=== PATIENT | male | born 1955 | race Caucasian/White ===

== ENCOUNTER → 2019-07-02 16:38 | Outpatient (CLI) | payer MEDICARE, OTHER, SELFPAY ==
[2016-11-12 12:32] VITALS: BMI 36.4
--- NOTE | 2019-07-02 16:44 | CT_ITS ---
HISTORY: PT STATED SMOKING HX OF 59 YEARS. VARYING 2-3 CIG PER DAY TO 3 PPD. TECHNIQUE: Helically acquired images of the chest were obtained without IV contrast utilizing low-dose screening technique with axial 1.25 mm lung window reconstructed images and coronal and sagittal 2.5 mm lung window reconstructed images reviewed. CTDI 3.40 mGy. DLP 112.31 mGy-cm. Number of images including paperwork: [id number]. COMPARISON: 08/02/2017 FINDINGS: VASCULATURE: Unremarkable as imaged. HEART/PERICARDIUM: Normal heart size. Coronary calcification.. MEDIASTINUM: Unremarkable. ADENOPATHY: No pathologic appearing adenopathy. THYROID: Unremarkable visualized portions. LUNG PARENCHYMA: No consolidation or mass. No suspicious lung nodule detected. Peribronchial thickening. PLEURAL SPACES: Unremarkable. UPPER ABDOMEN: Unremarkable. OSSEOUS AND SOFT TISSUE STRUCTURES: No acute skeletal findings. Degenerative changes. DEVICES: None. CT/Low Dose CT Lung Screening IMPRESSION: 1. No suspicious lung nodule detected. Lung-RADS 1. Recommend continued annual screening. 2. Peribronchial thickening as can be seen with bronchitis or airways disease. Individualized dose optimization techniques were used for this CT. at [id number] Reported and signed by: Arielle Hurst MD Electronically Signed: Arielle Hurst MD at 23:48 EST Tel , Service support ,
== END ==
PROVIDERS: Family Provider Family Medicine; PCP Family Medicine; Referring Provider Family Medicine; Visit Provider Family Medicine
DX: Z87.891 Personal history of nicotine dependence (principal)
CPT/HCPCS: G0297

== ENCOUNTER → 2019-07-07 08:27 | Outpatient (CLI) | payer MEDICARE, OTHER, SELFPAY ==
[2016-11-12 12:32] VITALS: BMI 36.4
--- NOTE | 2019-07-07 08:32 | US_ITS ---
PROCEDURES: ULTRASOUND AORTA REASON FOR EXAM: Male, 64 years old. Abdominal aortic aneurysm screening. TECHNIQUE: Ultrasound evaluation of the aorta was performed with real-time and static thomas-scale imaging. COMPARISON: None. FINDINGS: There is atherosclerotic plaque formation of the abdominal aorta. Aorta measures: Proximal 2.3 cm. Middle 2.0 cm. Distal 2.6 cm. Aorta measure transversely: Proximal 2.6 cm. Middle 2.6 cm. Distal 2.7 cm. Right iliac artery measures: 0.9 cm. Right iliac artery measure transversely: 1.0 cm. Left iliac artery measures: 0.9 cm. Left iliac artery measure transversely: 1.0 cm. There is no demonstrated aneurysm.. US/Aorta IMPRESSION: Atherosclerosis with no associated abdominal aortic aneurysm. Electronically Signed: Amber Hoskins MD at 16:22 EST Tel , Service support ,
[2019-07-07 10:22] LABS: Hematocrit 44.3 % (40-54); Hemoglobin 14.8 g/dL (13.0-16.5); Mean Corp Hgb Conc 33.4 g/dL (32-36); Mean Corpuscular Hgb 31.6 pg (27.0-32.0); Mean Corpuscular Volume 94.7 fL (80-94); Mean Platelet Vol. 10.8 fl (6.2-12.0); Platelet Count 276 K/mm3 (150-450); RBC Distribution Width CV 11.9 % (11.6-14.6); RBC Distribution Width SD 41.5 fl (35.1-43.9); Red Blood Count 4.68 M/mm3 (4.6-6.2); White Blood Count 6.7 K/mm3 (4.4-11.0)
[2019-07-07 10:54] LABS: ALB/GLOB Ratio 1.2 RATIO (0.9-2.4); AST(SGOT) 16 U/L (15-37); Alanine Aminotransfer ALT/SGPT 35 U/L (16-61); Albumin, Serum 3.8 g/dL (3.2-5.0); Alkaline Phosphatase 68 U/L (45-117); Anion Gap 6 (5-15); BUN 27 mg/dL (7-18); BUN/Creat Ratio 24.5 RATIO (10-20); Calcium,Total 8.8 mg/dL (8.5-10.1); Chloride 106 mmol/L (98-107); Cholesterol 190 mg/dL (200); EST Glomerular Filtration Rate 71 mL/min (>60); Est Glom Filt Rate - Afr Amer 86 mL/min (>60); Globulin 3.2 g/dL (2.2-4.2); Glucose 101 mg/dL (74-106); High Density Lipoprotein 36 mg/dL; PSA,Total - Annual Screen 2.21 ng/mL (0.00-4.00); Potassium 4.3 mmol/L (3.5-5.1); Sodium Level 140 mmol/L (136-145); Triglycerides 95 mg/dL; Very Low Density Lipoprotein 19 mg/dL (5-40)
== END ==
PROVIDERS: Family Provider Family Medicine; PCP Family Medicine; Referring Provider Family Medicine; Visit Provider Family Medicine
DX: Z13.6 Encounter for screening for cardiovascular disorders (principal); I10 Essential (primary) hypertension; N40.0 Benign prostatic hyperplasia without lower urinary tract symptoms
CPT/HCPCS: 36415; 76775; 80053; 80061; 84153; 85027; G0103

== ENCOUNTER → 2020-10-05 16:15 | Outpatient (CLI) | payer MEDICARE, OTHER, SELFPAY ==
[2016-11-12 12:32] VITALS: BMI 36.4
--- NOTE | 2020-10-05 16:18 | RAD_ITS ---
STUDY: X-RAY - LEFT SHOULDER REASON FOR EXAM: Male, 65 years old. neck pain and bilateral shoulder pain TECHNIQUE: 4 view(s) of the shoulder. COMPARISON: None. FINDINGS: There is severe degenerative arthrosis of the glenohumeral articulation. Prominent subchondral cysts of the glenoid. Inferior osteophyte of the articular surface of the humerus. There is hypertrophic osteoarthrosis of the acromioclavicular joint with inferior osseous spur formation. Normal acromion. Normal humeral head and visualized proximal humerus. The soft tissue structures are unremarkable. There is no demonstrated fracture. Normal visualized pulmonary apex. RAD/Shoulder min 2 Views IMPRESSION: No acute fracture or dislocation. Prominent degenerative changes. Electronically Signed: Luis F Ying MD at 22:55 EST , Service support ,
--- NOTE | 2020-10-05 16:18 | RAD_ITS ---
STUDY: X-RAY - RIGHT SHOULDER REASON FOR EXAM: Male, 65 years old. neck pain and bilateral shoulder pain TECHNIQUE: 4 view(s) of the shoulder. COMPARISON: None. FINDINGS: There is mild degenerative arthrosis of the glenohumeral articulation. There is hypertrophic osteoarthrosis of the acromioclavicular joint with inferior osseous spur formation. Normal acromion. Normal humeral head and visualized proximal humerus. The soft tissue structures are unremarkable. There is no demonstrated fracture. Normal visualized pulmonary apex. RAD/Shoulder min 2 Views IMPRESSION: Degenerative changes. No acute abnormalities. Electronically Signed: Luis F Ying MD at 22:56 EST , Service support ,
--- NOTE | 2020-10-05 16:20 | RAD_ITS ---
STUDY: X-RAY - CERVICAL SPINE REASON FOR EXAM: Male, 65 years old. neck pain and bilateral shoulder pain TECHNIQUE: 5 view(s) of the cervical spine were obtained. COMPARISON: None FINDINGS: Normal anterior atlantoaxial articulation. Normal odontoid process. Normal lordosis and alignment. There is fusion between C6 and C7. There is multilevel spondylosis. There is moderate narrowing of the disc C5-C6. Neural foraminal narrowing is seen bilaterally C5-C6. The soft tissue structures are unremarkable. There is no demonstrated fracture of the cervical spine. RAD/Cerv Spine 4 or 5 Views IMPRESSION: No acute fracture or dislocation. Multilevel degenerative changes. Cervical body fusion at C6 and C7. Electronically Signed: Luis F Ying MD at 17:11 EST , Service support ,
== END ==
PROVIDERS: PCP Family Medicine; Referring Provider Family Medicine; Visit Provider Family Medicine
DX: M54.2 Cervicalgia (principal); M25.512 Pain in left shoulder; M25.511 Pain in right shoulder
CPT/HCPCS: 72050; 73030

== ENCOUNTER → 2020-11-12 08:11 | Outpatient (CLI) | payer MEDICARE, OTHER, SELFPAY ==
[2016-11-12 12:32] VITALS: BMI 36.4
[2020-11-12 10:51] LABS: ALB/GLOB Ratio 1.1 RATIO (0.9-2.4); AST(SGOT) 16 U/L (15-37); Alanine Aminotransfer ALT/SGPT 37 U/L (16-61); Albumin, Serum 3.6 g/dL (3.2-5.0); Alkaline Phosphatase 74 U/L (45-117); Anion Gap 6 (5-15); BUN 22 mg/dL (7-18); BUN/Creat Ratio 21.2 RATIO (10-20); Calcium,Total 8.9 mg/dL (8.5-10.1); Chloride 104 mmol/L (98-107); Cholesterol 189 mg/dL (200); Creatinine, Serum 1.04 mg/dL (0.70-1.30); EST Glomerular Filtration Rate 76 mL/min (>60); Est Glom Filt Rate - Afr Amer 92 mL/min (>60); Globulin 3.3 g/dL (2.2-4.2); Glucose 108 mg/dL (74-106); High Density Lipoprotein 46 mg/dL; PSA,Total - Annual Screen 0.79 ng/mL (0.00-4.00); Potassium 4.3 mmol/L (3.5-5.1); Protein, Total 6.9 g/dL (6.4-8.2); Sodium Level 139 mmol/L (136-145); Triglycerides 68 mg/dL; Very Low Density Lipoprotein 14 mg/dL (5-40)
== END ==
PROVIDERS: PCP Family Medicine; Referring Provider Family Medicine; Visit Provider Family Medicine
DX: I10 Essential (primary) hypertension (principal); N40.0 Benign prostatic hyperplasia without lower urinary tract symptoms; Z12.5 Encounter for screening for malignant neoplasm of prostate
CPT/HCPCS: 36415; 80053; 80061; 84153; G0103

== ENCOUNTER → 2022-06-19 | Outpatient (CLI) | payer MEDICARE, OTHER, SELFPAY ==
--- NOTE | 2022-06-19 15:26 | ECHOCS_ITS ---
Reason For Study: Arrhythmia Procedure This was a 2D Doppler, Color Flow transthoracic echocardiogram. The study was technically difficult. Contrast injection was performed. Exam performed in department. Left Ventricle Normal LV size. Left ventricular systolic function is normal. The estimated ejection fraction is 65 %. Stage 1 diastolic dysfunction. No regional wall motion abnormalities noted. Right Ventricle Normal RV size. Normal systolic function. Atria Normal left atrium. Normal right atrium. Mitral Valve Normal mitral valve. Tricuspid Valve The tricuspid valve is not well visualized. Aortic Valve Trisinus/trileaflet aortic valve. Mild diffuse aortic valve thickening. Pulmonic Valve The pulmonic valve is not well visualized. Great Vessels Normal aortic root. Pericardium/Pleural No pericardial effusion. Medication 20 gauge I.V. with prn adaptor inserted into right arm. Diluted definity 3ml given slow IV push to enhance endocardial definition. MMode/2D Measurements & Calculations LVIDd: 5.3 cm IVSd: 1.1 cm LA dimension: 3.2 cm LVIDs: 4.1 cm LVPWd: 1.3 cm FS: 22.9 % LAV(MOD-bp): 40.1 ml LA A4 area: 16.2 cm2 RA A4 area: 14.9 cm2 LAV(MOD-bp) Indexed: 18.4 ml/m2 LAV(MOD-sp2): 34.7 ml LAV(MOD-sp4): 43.2 ml Time Measurements MV dec time: 0.30 sec Doppler Measurements & Calculations MV E max riri: 71.5 cm/sec Ao V2 max: 137.6 cm/sec LV V1 max: 96.5 cm/sec MV A max riri: 108.1 cm/sec Ao max P.6 mmHg LV V1 max P.8 mmHg MV E/A: 0.66 PA V2 max: 80.9 cm/sec ECHO/Echo Complete W/ Contrast Interpretation Summary Normal LV size. Left ventricular systolic function is normal. The estimated ejection fraction is 65 %. Stage 1 diastolic dysfunction. Contrast injection was performed. Ordering Physician: Radames Reese Performed By: Martinez Massey RCS
== END | disposition home or self-care (01) ==
PROVIDERS: PCP Family Medicine; Visit Provider Family Medicine
DX: I49.3 Ventricular premature depolarization (principal)
CPT/HCPCS: 93306; Q9957; A4216; C8929

== ENCOUNTER → 2022-12-16 | Outpatient (CLI) | payer MEDICARE, OTHER, SELFPAY ==
[2022-12-16 08:00] LABS: Absolute Lymphocyte Count 1.68 X10^3/uL (0.83-4.51); Absolute Neutrophil Count 3.7 X10^3/uL (2.0-7.7); Basophil# 0.03 X10^3/uL; Basophil% 0.5 % (0-1); Eosinophil# 0.13 X10^3/uL; Eosinophils% 2.2 % (0-5); Hematocrit 44.5 % (40-54); Lymphocyte # 1.68 X10^3/ul (0.83-4.51); Mean Corp Hgb Conc 33.7 g/dL (32-36); Mean Corpuscular Hgb 31.2 pg (27.0-32.0); Mean Corpuscular Volume 92.5 fL (80-94); Mean Platelet Vol. 10.9 fl (6.2-12.0); Monocyte# 0.51 X10^3/uL; Monocyte% 8.5 % (0-10); NRBC Flagged by Analyzer 0 % (0-5); Neutrophil # 3.65 X10^3/uL (2.7-7.7); Neutrophil % 60.6 % (47-70); Platelet Count 236 K/mm3 (150-450); RBC Distribution Width CV 12.5 % (11.6-14.6); RBC Distribution Width SD 42.8 fl (35.1-43.9); Red Blood Count 4.81 M/mm3 (4.6-6.2)
[2022-12-16 08:35] LABS: ALB/GLOB Ratio 1.2 RATIO (0.9-2.4); AST(SGOT) 17 U/L (15-37); Alanine Aminotransfer ALT/SGPT 36 U/L (16-61); Albumin, Serum 3.7 g/dL (3.2-5.0); Alkaline Phosphatase 72 U/L (45-117); Anion Gap 4 (5-15); BUN 19 mg/dL (7-18); BUN/Creat Ratio 17.4 RATIO (10-20); Calcium,Total 9.1 mg/dL (8.5-10.1); Chloride 108 mmol/L (98-107); Cholesterol 175 mg/dL (200); Creatinine, Serum 1.09 mg/dL (0.70-1.30); EST Glomerular Filtration Rate 71 mL/min (>60); Est Glom Filt Rate - Afr Amer 86 mL/min (>60); Globulin 3.2 g/dL (2.2-4.2); Glucose 113 mg/dL (74-106); High Density Lipoprotein 37 mg/dL; PSA,Total - Annual Screen 1.55 ng/mL (0.00-4.00); Protein, Total 6.9 g/dL (6.4-8.2); Sodium Level 140 mmol/L (136-145); Triglycerides 72 mg/dL; Very Low Density Lipoprotein 14 mg/dL (5-40)
== END | disposition home or self-care (01) ==
PROVIDERS: PCP Family Medicine; Referring Provider Family Medicine; Visit Provider Family Medicine
DX: E78.5 Hyperlipidemia, unspecified (principal); N40.0 Benign prostatic hyperplasia without lower urinary tract symptoms; Z12.5 Encounter for screening for malignant neoplasm of prostate
CPT/HCPCS: 36415; 80053; 80061; 84153; 85025; G0103

== ENCOUNTER → 2023-08-07 | Outpatient (CLI) | payer MEDICARE, OTHER, SELFPAY ==
--- NOTE | 2023-08-07 08:22 | CT_ITS ---
EXAM: CT CHEST, LUNG CANCER SCREENING WITHOUT INTRAVENOUS CONTRAST CLINICAL INDICATION: CURRENT SMOKER TECHNIQUE: Helically acquired images were obtained of the chest without intravenous contrast using low dose (LDCT) lung cancer screening protocol. This CT exam was performed using one or more of the following dose reduction techniques: automated exposure control, adjustment of the mA and/or kV according to patient size, and/or use of iterative reconstruction technique. COMPARISON: CT Lung Cancer Screening dated 07/02/2019 FINDINGS: LUNGS AND PLEURAL SPACES: Normal. No mass. No consolidation or edema. No pleural effusion or thickening. No pneumothorax. HEART: Heart is normal size. Prominent coronary artery calcification. No pericardial effusion. MEDIASTINUM: Normal. No mediastinal or hilar adenopathy. Esophagus is unremarkable. No hiatal hernia. THYROID: Normal. No thyroid nodules or calcification. BONES/JOINTS: No suspicious lytic or blastic abnormality. VASCULATURE: No aortic aneurysm. LYMPH NODES: Normal. No enlarged lymph nodes. CT/Low Dose CT Lung Screening IMPRESSION: No evidence of lung mass or nodule. Lung-RADS score: 1 - Negative. Recommend continued annual screening with a low-dose CT (LDCT) in 12 months. Electronically Signed: Eb Vilchis MD at 10:54 EST ,
== END | disposition home or self-care (01) ==
LOC: CT 07:47
PROVIDERS: PCP Family Medicine; Referring Provider Family Medicine; Visit Provider Family Medicine
DX: F17.210 Nicotine dependence, cigarettes, uncomplicated (principal)
CPT/HCPCS: 71271

== ENCOUNTER → 2024-01-09 | Outpatient (CLI) | payer MEDICARE, OTHER, SELFPAY ==
--- NOTE | 2024-01-09 10:57 | RAD_ITS ---
INDICATION: COUGH EXAMINATION/TECHNIQUE: X-RAY - XR Chest 2 Views COMPARISON: 09/26/2016. FINDINGS: LINES/DEVICES: None. LUNGS: No consolidation, edema or effusion. No pneumothorax. MEDIASTINUM AND CARDIOVASCULAR STRUCTURES: Cardiac silhouette not enlarged. BONES AND SOFT TISSUES: Unremarkable. RAD/Chest PA and Lateral IMPRESSION: No radiographic evidence of acute cardiopulmonary disease. Electronically Signed: Flip Holbrook MD at 18:51 EDT ,
== END | disposition home or self-care (01) ==
PROVIDERS: PCP Family Medicine; Referring Provider Family Medicine; Visit Provider Family Medicine
DX: R05.9 Cough, unspecified (principal)
CPT/HCPCS: 71046

== ENCOUNTER → 2024-06-14 | Outpatient (CLI) | payer MEDICARE, OTHER, SELFPAY ==
[2024-06-14 08:28] LABS: Hematocrit 41.9 % (40-54); Hemoglobin 14.2 g/dL (13.0-16.5); Mean Corp Hgb Conc 33.9 g/dL (32-36); Mean Corpuscular Hgb 31.3 pg (27.0-32.0); Mean Corpuscular Volume 92.3 fL (80-94); Platelet Count 255 K/mm3 (150-450); RBC Distribution Width CV 12.6 % (11.6-14.6); RBC Distribution Width SD 42.5 fl (35.1-43.9); Red Blood Count 4.54 M/mm3 (4.6-6.2)
[2024-06-14 09:09] LABS: ALB/GLOB Ratio 1.1 RATIO (0.9-2.4); AST(SGOT) 13 U/L (15-37); Alanine Aminotransfer ALT/SGPT 28 U/L (16-61); Albumin, Serum 3.6 g/dL (3.2-5.0); Alkaline Phosphatase 75 U/L (45-117); Anion Gap 4 (5-15); BUN 18 mg/dL (7-18); BUN/Creat Ratio 19.3 RATIO (10-20); Calcium,Total 9.3 mg/dL (8.5-10.1); Chloride 107 mmol/L (98-107); Cholesterol 162 mg/dL (200); Creatinine, Serum 0.93 mg/dL (0.70-1.30); EST Glomerular Filtration Rate 85 mL/min (>60); Est Glom Filt Rate - Afr Amer 103 mL/min (>60); Globulin 3.3 g/dL (2.2-4.2); Glucose 127 mg/dL (74-106); High Density Lipoprotein 41 mg/dL; PSA,Total - Annual Screen 0.96 ng/mL (0.00-4.00); Potassium 4.5 mmol/L (3.5-5.1); Protein, Total 6.9 g/dL (6.4-8.2); Sodium Level 140 mmol/L (136-145); Triglycerides 82 mg/dL; Very Low Density Lipoprotein 16 mg/dL (5-40)
== END | disposition home or self-care (01) ==
LOC: LAB 07:45
PROVIDERS: PCP Family Medicine; Referring Provider Family Medicine; Visit Provider Family Medicine
DX: E11.9 Type 2 diabetes mellitus without complications (principal); J44.9 Chronic obstructive pulmonary disease, unspecified; Z12.5 Encounter for screening for malignant neoplasm of prostate; E78.5 Hyperlipidemia, unspecified
CPT/HCPCS: 36415; 80053; 80061; 84153; 84403; 84443; 85027; G0103

== ENCOUNTER → 2024-08-15 | Outpatient (CLI) | payer MEDICARE, OTHER, SELFPAY ==
--- NOTE | 2024-08-15 07:25 | CT_ITS ---
STUDY: LOW DOSE CT LUNG CANCER SCREENING REASON FOR EXAM: Male, 69 years old. screening -- 3ppd x 55 years copd RADIATION DOSAGE (If Supplied By Facility): CTDIvol = ( 4.02 ) mGy, DLP = ( 139.44 ) mGycm TECHNIQUE: No contrast was administered. Low dose technique was utilized (average mAS-38 and kVp 120). 1.25 mm axial source images with a slice interval of 1.25-mm were reconstructed in lung windows. 2.5 mm axial source images with a slice interval of 2.5-mm were reconstructed in lung windows. 5.0 mm axial source images with a slice interval of 5.0-mm were reconstructed in soft tissue windows. COMPARISON: 08/07/2023 FINDINGS: Lung windows show the lungs to be normally expanded. There is no organized infiltrate, effusion, or suspicious noncalcified mass or nodule. Limited soft tissue windows show normal-appearing thyroid gland. No suspicious adenopathy. There are calcified coronary vessels. No pericardial effusion. Bony structures show degenerative change. Limited cuts through the upper abdomen do not show a suspicious abnormality. No interval change CT/Low Dose CT Lung Screening IMPRESSION: Lung-RADS category 1 - Continue annual screening with LDCT in 12 months. IMPORTANT NOTES FOR USE: ACR Lung-RADS Version 1.1 Assessment Categories Release Date: 2018 Category: Coded 0-4 bases on nodule(s) with highest degree of suspicion. Negative screen is defined as categories 1 and 2; a positive screen is defined as categories 3 and 4. Category 3 and 4A nodules that are unchanged on interval CT should be coded as category 2, and individuals returned to screening in 12 months. Category 4X: Category 3 or 4 nodules with additional imaging findings that increase the suspicion of lung cancer, such as spiculation, GGN that doubles in size in 1 year, enlarged lymph notes, etc. Category Modifiers: S (significant finding unrelated to lung cancer) Electronically Signed: Jef Huerta MD at 14:26 EST ,
== END | disposition home or self-care (01) ==
LOC: CT 07:21
PROVIDERS: PCP Family Medicine; Referring Provider Nurse Practitioner Family; Visit Provider Nurse Practitioner Family
DX: Z12.2 Encounter for screening for malignant neoplasm of respiratory organs (principal); F17.210 Nicotine dependence, cigarettes, uncomplicated
CPT/HCPCS: 71271

== ENCOUNTER → 2025-03-30 | Outpatient (CLI) | payer MEDICARE, OTHER, SELFPAY ==
[2025-03-31 19:33] LABS: Microalbumin,Random Urine 26.8 mg/L (<20 mg/L)
--- OUTSIDE RECORDS SUMMARY | 2025-04-01 07:18 | XMS RPT_ITS | CCD ---
Author Organization [facility] In[facility] ion [facility] Care Team Providers Care Support Assistant Name Role Phone Dr. Radames Reese Primary Care Provider Dr. Jean Marie Beverly Attending Provider Christopher Reese Referring Unavailable Christopher Reese Primary Care Unavailable Christopher Reese Attending Unavailable Christopher Reese Primary Care Unavailable Amelia Rajput Attending Unavailable Amelia Rajput Referring Unavailable Christopher Reese Attending Unavailable Christopher Reese Referring Unavailable Christopher Reese Primary Care Unavailable Christopher Reese Referring Unavailable Anastasia Garcia Attending Unavailable Christopher Reese Primary Care Unavailable Medications Current Medications Medication Drug Class(es) Dates Sig (Normalized) Sig (Original) polymyxin b 18766 unt/ml / trimethoprim 1 mg/ml ophthalmic solution (3 sources) Dihydrofolate Reductase Inhibitor Antibacterial, Polymyxin-class Antibacterial Start: 11-12-2016 take 1 mL into the eye(s) four times daily Polymyxin B Sulf-Trimethopri m (Polytrim Eye Drops) 10 ML drops Active 10 ML OP 4 TIMES DAILY November 11, 2016 11:00pm Problems Problem Classification Problem Date Documented Da te Episodic/Chronic Diabetes mellitus without complication (1 source) Type 2 diabetes mellitus without complications; Translations: [Type 2 diabetes mellitus without complications] Onset: 07-04-2024 Chronic Other screening for suspected conditions (not mental disorders or infectious disease) (1 source) Encounter for screening for malignant neoplasm of respiratory organs; Translations: [Encounter for screening for malignant neoplasm of respiratory organs] Onset: 09-10-2024 Episodic Unclassified (1 source) Cough, unspecified; Translations: [Cough, unspecified] Onset: 01-17-2024 Results Test Name Value Interpretation Reference Range Facility Low Dose CT Lung Screeningon 08-15-[address] Lung Screening [facility] [address] [place], [place] [address] Low Dose CT Lung Screening MR#: [id number] Acct: [id number] Name: TIMOTHY UNDERWOOD Rep #: [id number] : 1955 M 69 From: Ciaran Huerta MD PCP: Dr. Christopher Reese MD Status: REG CLI Study: Low Dose CT Lung Screening Date of Exam: 08/15 Exam# [id number] Ordering Dr: Amelia Rajput [employer]CHER STRIPPER [employer] W[employer]CHER STRIPPER-C [id number] STUDY: LOW DOSE CT LUNG CANCER SCREENING REASON FOR EXAM: Male, 69 years old. screening -- 3ppd x 55 years copd RADIATION DOSAGE (If Supplied By Facility): CTDIvol = ( 4.02 ) mGy, DLP = ( 139.44 ) mGycm TECHNIQUE: No contrast was administered. Low dose technique was utilized (average mAS-38 and kVp 120). 1.25 mm axial source images with a slice interval of 1.25-mm were reconstructed in lung windows. 2.5 mm axial source images with a slice interval of 2.5-mm were reconstructed in lung windows. 5.0 mm axial source images with a slice interval of 5.0-mm were reconstructed in soft tissue windows. COMPARISON: 08/07/2023 FINDINGS: Lung windows show the lungs to be normally expanded. There is no organized infiltrate, effusion, or suspicious noncalcified mass or nodule. Limited soft tissue windows show normal-appearing thyroid gland. No suspicious adenopathy. There are calcified coronary vessels. No pericardial effusion. Bony structures show degenerative change. Limited cuts through the upper abdomen do not show a suspicious abnormality. No interval change CT/Low Dose CT Lung Screening IMPRESSION: Lung-RADS category 1 - Continue annual screening with LDCT in 12 months. IMPORTANT NOTES FOR USE: ACR Lung-RADS Version 1.1 Assessment Categories Release Date: 2018 Category: Coded 0-4 bases on nodule(s) with highest degree of suspicion. Negative screen is defined as categories 1 and 2; a positive screen is defined as categories 3 and 4. Category 3 and 4A nodules that are unchanged on interval CT should be coded as category 2, and individuals returned to screening in 12 months. Category 4X: Category 3 or 4 nodules with additional imaging findings that increase the suspicion of lung cancer, such as spiculation, GGN that doubles in size in 1 year, enlarged lymph notes, etc. Category Modifiers: S (significant finding unrelated to lung cancer) Electronically Signed: Jef Huerta MD at 14:26 EST Reading Location ID and State: [facility] / [place] , Service support , CC: JENNIFER Rajput; Dr. Christopher Reese MD Pulling Unit Operator: Signed Normal [facility] Testosterone, Serum Totalon 06-16-2024 Testosterone [Mass/Vol] 226.99 ng/dL Normal [facility] Comment on above: Order Comment: Order Date: 02/27/24 Order Info: [id number] - ANGELA Result Comment: CENT RAL 90% REFERENCE RANGES MALE AGE <50 197.44 - 669.58 ng/dL MALE AGE > or = 50 187.72 - 684.19 ng/dL FEMALE AGE <50 8.38 - 35.01 ng/dL FEMALE AGE > or = 50 <7.00 - 35.92 ng/dL Effective as of 03/08/21 Performed By: #### L 509.3000, L500.4100, L501.9910, L500.4050, L501.9520 #### [facility] [address] [place], [address] CBC-Complete Blood Cnt No Di ffon 06-14-2024 Erythrocyte distribution width (RBC) [Ratio] 12.6 % Normal 11.6-14.6 [facility] Comment on above: Order Comment: Order Date: 02/27/24 Order Info: [id number] - CBC Performed By: #### L 100.0500 #### [facility] [address] [place], [address] Hematocrit (Bld) [Volume fraction] 41.9 % Normal 40-54 [facility] Comment on above: Order Comment: Order Date: 02/27/24 Order Info: [id number] - CBC Performed By: #### L 100.0500 #### [facility] [address] [place], [address] Hemoglobin (Bld) [Mass/Vol] 14.2 g/dL Normal 13.0-16.5 [facility] Comment on above: Order Comment: Order Date: 02/27/24 Order Info: [id number] - CBC Performed By: #### L 100.0500 #### [facility] [address] [place], [address] MCH (RBC) [Entitic mass] 31.3 pg Normal 27.0-32.0 [facility] Comment on above: Order Comment: Order Date: 02/27/24 Order Info: [id number] - CBC Performed By: #### L 100.0500 #### [facility] [address] [place], [address] MCHC (RBC) [Mass/Vol] 33.9 g/dL Normal 32-36 [facility] Comment on above: Order Comment: Order Date: 02/27/24 Order Info: [id number] - CBC Performed By: #### L 100.0500 #### [facility] [address] [place], [address] MCV (RBC) [Entitic vol] 92.3 fL Normal 80-94 [facility] Comment on above: Order Comment: Order Date: 02/27/24 Order Info: [id number] - CBC Performed By: #### L 100.0500 #### [facility] [address] [place], [address] Platelet mean volume (Bld) [Entitic vol] 11.0 fL Normal 6.2-12.0 [facility] Comment on above: Order Comment: Order Date: 02/27/24 Order Info: [id number] - CBC Performed By: #### L 100.0500 #### [facility] [address] [place], [address] Platelets (Bld) [#/Vol] 255 10*3/uL Normal 150-450 [facility] Comment on above: Order Comment: Order Date: 02/27/24 Order Info: [id number] - CBC Performed By: #### L 100.0500 #### [facility] [address] [place], [address] RBC (Bld) [#/Vol] 4.54 10*6/uL Low 4.6-6.2 [facility] Comment on above: Order Comment: Order Date: 02/27/24 Order Info: [id number] - CBC Performed By: #### L 100.0500 #### [facility] [address] [place], [address] RDW SD 42.5 fl Normal 35.1-43.9 [facility] Comment on above: Order Comment: Order Date: 02/27/24 Order Info: [id number] - CBC Performed By: #### L 100.0500 #### [facility] [address] [place], [address] WBC (Bld) [#/Vol] 7.0 10*3/uL Normal 4.4-11.0 [facility] Comment on above: Order Comment: Order Date: 02/27/24 Order Info: [id number] - CBC Performed By: #### L 100.0500 #### [facility] [address] [place], [address] Comprehensive Metabolic Prof ilon 06-14-2024 Albumin [Mass/Vol] 3.6 g/dL Normal 3.2-5.0 [facility] Comment on above: Order Comment: Order Date: 02/27/24 Order Info: [id number] - CMP Order Info: - LIPID Order Info: [id number] - TSH Order Info: 2856-08 - PSA Performed By: #### L 509.3000, L500.4100, L501.9910, L500.4050, L501.9520 #### [facility] [address] [place], [address] Albumin/Globulin [Mass ratio] 1.1 {ratio} Normal 0.9-2.4 [facility] Comment on above: Order Comment: Order Date: 02/27/24 Order Info: [id number] - CMP Order Info: - LIPID Order Info: [id number] - TSH Order Info: 2856-08 - PSA Performed By: #### L 509.3000, L500.4100, L501.9910, L500.4050, L501.9520 #### [facility] [address] [place], [address] ALK P 75 U/L Normal 45-117 [facility] Comment on above: Order Comment: Order Date: 02/27/24 Order Info: [id number] - CMP Order Info: - LIPID Order Info: 3015-10 - TSH Order Info: 2856-08 - PSA Performed By: #### L 509.3000, L500.4100, L501.9910, L500.4050, L501.9520 #### [facility] [address] [place], [address] ALT [Catalytic activity/Vol] 28 U/L Normal 16-61 [facility] Comment on above: Order Comment: Order Date: 02/27/24 Order Info: 785-08 - CMP Order Info: - LIPID Order Info: [id number] - TSH Order Info: 1 - PSA Performed By: #### L 509.3000, L500.4100, L501.9910, L500.4050, L501.9520 #### [facility] [address] [place], [address] AST [Catalytic activity/Vol] 13 U/L Low 15-37 [facility] Comment on above: Order Comment: Order Date: 02/27/24 Order Info: 785- - CMP Order Info: - LIPID Order Info: [id number] - TSH Order Info: 2856-08 - PSA Performed By: #### L 509.3000, L500.4100, L501.9910, L500.4050, L501.9520 #### [facility] [address] [place], [address] Bilirubin [Mass/Vol] 0.40 mg/dL Normal 0.20-1.00 [facility] Comment on above: Order Comment: Order Date: 02/27/24 Order Info: 785-08 - CMP Order Info: - LIPID Order Info: 3015-10 - TSH Order Info: 2856-08 - PSA Result Comment: For patients on eltrombopag therapy, use of Dimension [place] TBIL is not recommended. Performed By: #### L 509.3000, L500.4100, L501.9910, L500.4050, L501.9520 #### [facility] [address] [place], [address] BUN/CRE 19.3 RATIO Normal 10-20 [facility] Comment on above: Order Comment: Order Date: 02/27/24 Order Info: 785-08 - CMP Order Info: - LIPID Order Info: 3015-10 - TSH Order Info: 2856-08 - PSA Performed By: #### L 509.3000, L500.4100, L501.9910, L500.4050, L501.9520 #### [facility] [address] [place], [address] CA,Total 9.3 mg/dL Normal 8.5-10.1 [facility] Comment on above: Order Comment: Order Date: 02/27/24 Order Info: 785-08 - CMP Order Info: - LIPID Order Info: 3015-10 - TSH Order Info: 2856-08 - PSA Performed By: #### L 509.3000, L500.4100, L501.9910, L500.4050, L501.9520 #### [facility] [address] [place], [address] Chloride [Moles/Vol] 107 mmol/L Normal 98-107 [facility] Comment on above: Order Comment: Order Date: 02/27/24 Order Info: 86-1 - CMP Order Info: [id number] - LIPID Order Info: 3 - TSH Order Info: 2856-08 - PSA Performed By: #### L 509.3000, L500.4100, L501.9910, L500.4050, L501.9520 #### [facility] [address] [place], [address] CO2 [Moles/Vol] 29.0 mmol/L Normal 21.0-32.0 [facility] Comment on above: Order Comment: Order Date: 02/27/24 Order Info: 785- - CMP Order Info: 05586-0 - LIPID Order Info: 3015-10 - TSH Order Info: 2856-08 - PSA Performed By: #### L 509.3000, L500.4100, L501.9910, L500.4050, L501.9520 #### [facility] [address] [place], [address] Creatinine [Mass/Vol] 0.93 mg/dL Normal 0.70-1.30 [facility] Comment on above: Order Comment: Order Date: 02/27/24 Order Info: 785-1 - CMP Order Info: [id number] - LIPID Order Info: 3 - TSH Order Info: 2856-08 - PSA Result Comment: The validity of the calculated GFR GFRAA in patients over 70 years has not been determined. Clinical correlation is essential. Performed By: #### L 509.3000, L500.4100, L501.9910, L500.4050, L501.9520 #### [facility] [address] [place], [address] EST GFR - AA 103 mL/min Normal >60 [facility] Comment on above: Order Comment: Order Date: 02/27/24 Order Info: 07 - CMP Order Info: [id number] - LIPID Order Info: 3015-3 - TSH Order Info: 2857-1 - PSA Result Comment: Afri can [place] GFR Calc Performed By: #### L 509.3000, L500.4100, L501.9910, L500.4050, L501.9520 #### [facility] [address] [place], [address] GAP 4 Low 5-15 [facility] Comment on above: Order Comment: Order Date: 02/27/24 Order Info: 785-08 - CMP Order Info: - LIPID Order Info: 3 - TSH Order Info: 2856-08 - PSA Performed By: #### L 509.3000, L500.4100, L501.9910, L500.4050, L501.9520 #### [facility] [address] [place], [address] GFR/1.73 sq M.predicted among non-blacks MDRD (S/P/Bld) [Vol rate/Area] 85 mL/min/{1.73_m2} Normal >60 [facility] Comment on above: Order Comment: Order Date: 02/27/24 Order Info: 07 - CMP Order Info: 90001-5 - LIPID Order Info: 3 - TSH Order Info: 2857-1 - PSA Result Comment: Non- GFR Calc Performed By: #### L 509.3000, L500.4100, L501.9910, L500.4050, L501.9520 #### [facility] [address] [place], [address] Globulin (S) [Mass/Vol] 3.3 g/dL Normal 2.2-4.2 [facility] Comment on above: Order Comment: Order Date: 02/27/24 Order Info: 785-08 - CMP Order Info: - LIPID Order Info: 3015-10 - TSH Order Info: 2856-08 - PSA Performed By: #### L 509.3000, L500.4100, L501.9910, L500.4050, L501.9520 #### [facility] [address] [place], [address] Glucose [Mass/Vol] 127 mg/dL High 74-106 [facility] Comment on above: Order Comment: Order Date: 02/27/24 Order Info: 785-08 - CMP Order Info: - LIPID Order Info: 3015-10 - TSH Order Info: 2856-08 - PSA Result Comment: Fast ing Glucose result greater than or equal to 126 mg/dL suggests DIABETES MELLITUS per A.D.A. criteria. Performed By: #### L 509.3000, L500.4100, L501.9910, L500.4050, L501.9520 #### [facility] [address] [place], [address] Potassium [Moles/Vol] 4.5 mmol/L Normal 3.5-5.1 [facility] Comment on above: Order Comment: Order Date: 02/27/24 Order Info: 785-08 - CMP Order Info: - LIPID Order Info: 3015-10 - TSH Order Info: 2856-08 - PSA Performed By: #### L 509.3000, L500.4100, L501.9910, L500.4050, L501.9520 #### [facility] [address] [place], [address] Sodium [Moles/Vol] 140 mmol/L Normal 136-145 [facility] Comment on above: Order Comment: Order Date: 02/27/24 Order Info: 785-08 - CMP Order Info: - LIPID Order Info: 3015-10 - TSH Order Info: 2856-08 - PSA Performed By: #### L 509.3000, L500.4100, L501.9910, L500.4050, L501.9520 #### [facility] [address] [place], [address] T PROT 6.9 g/dL Normal 6.4-8.2 [facility] Comment on above: Order Comment: Order Date: 02/27/24 Order Info: 07-1 - CMP Order Info: [id number] - LIPID Order Info: 3013 - TSH Order Info: 7-1 - PSA Performed By: #### L 509.3000, L500.4100, L501.9910, L500.4050, L501.9520 #### [facility] [address] [place], [address] Urea nitrogen [Mass/Vol] 18 mg/dL Normal 7-18 [facility] Comment on above: Order Comment: Order Date: 02/27/24 Order Info: 785-08 - CMP Order Info: - LIPID Order Info: 3 - TSH Order Info: 71 - PSA Performed By: #### L 509.3000, L500.4100, L501.9910, L500.4050, L501.9520 #### [facility] [address] [place], [address] Lipid Profileon 06-14-2024 Cholesterol [Mass/Vol] 162 mg/dL Normal 200 [facility] Comment on above: Order Comment: Order Date: 02/27/24 Order Info: 07 - CMP Order Info: 60606-0 - LIPID Order Info: 3015-3 - TSH Order Info: 2857-1 - PSA Result Comment: <200 mg/dL Desirable 200-240 mg/dL Borderline >240 mg/dL High Risk Performed By: #### L 509.3000, L500.4100, L501.9910, L500.4050, L501.9520 #### [facility] [address] [place], [address] Cholesterol in HDL [Mass/Vol] 41 mg/dL Normal [facility] Comment on above: Order Comment: Order Date: 02/27/24 Order Info: 785-08 - CMP Order Info: - LIPID Order Info: 3015-10 - TSH Order Info: 2856-08 - PSA Result Comment: The drugs N-Acetylcysteine and Metamizole may falsely depress this assay. Reference Range HDL <40 mg/dL Low HDL Cholesterol HDL >or= 60 mg/dL High HDL Cholesterol Performed By: #### L 509.3000, L500.4100, L501.9910, L500.4050, L501.9520 #### [facility] [address] [place], [address] Cholesterol in LDL [Mass/Vol] 105 mg/dL Normal 0-130 [facility] Comment on above: Order Comment: Order Date: 02/27/24 Order Info: 785-08 - CMP Order Info: - LIPID Order Info: 3015-10 - TSH Order Info: 2856-08 - PSA Performed By: #### L 509.3000, L500.4100, L501.9910, L500.4050, L501.9520 #### [facility] [address] [place], [address] Cholesterol in VLDL [Mass/Vol] 16 mg/dL Normal 5-40 [facility] Comment on above: Order Comment: Order Date: 02/27/24 Order Info: 785-08 - CMP Order Info: - LIPID Order Info: 3 - TSH Order Info: 1 - PSA Performed By: #### L 509.3000, L500.4100, L501.9910, L500.4050, L501.9520 #### [facility] [address] [place], [address] Triglyceride [Mass/Vol] 82 mg/dL Normal [facility] Comment on above: Order Comment: Order Date: 02/27/24 Order Info: 785- - CMP Order Info: - LIPID Order Info: 3 - TSH Order Info: 2856-08 - PSA Result Comment: The drugs N-Acetylcysteine and Metamizole may falsely depress this assay. Serum Triglycerides Reference Interval Normal <150 mg/dL Borderline high 150 - 199 mg/dL High 200 - 499 mg/dL Very High > or = 500 mg/dL Performed By: #### L 509.3000, L500.4100, L501.9910, L500.4050, L501.9520 #### [facility] [address] [place], [place], [address] PSA,Total - Annual Screenon 06-14-2024 PSA,TOT SCREEN 0.96 ng/mL Normal 0.00-4.00 [facility] Comment on above: Order Comment: Order Date: 02/27/24 Order Info: 0786- - CMP Order Info: [id number] - LIPID Order Info: 3 - TSH Order Info: 2856-08 - PSA Result Comment: This test was performed using the TPSA assay method for the [employer] chemistry system. Values obtained with different assay methods cannot be used interchangably. When changing PSA assays in the course of monitoring a patient, additional sequential testing should be carried out to confirm baseline values. Performed By: #### L 509.3000, L500.4100, L501.9910, L500.4050, L501.9520 #### [facility] [address] [place], [address] Thyroid Stim Hormone (TSH)on 06-14-2024 TSH 3.160 uIU/mL Normal 0.358-3.740 [facility] Comment on above: Order Comment: Order Date: 02/27/24 Order Info: 0786- - CMP Order Info: [id number] - LIPID Order Info: 3015-10 - TSH Order Info: 2856-08 - PSA Performed By: #### L 509.3000, L500.4100, L501.9910, L500.4050, L501.9520 #### [facility] [address] [place], [place], [address] Urgent Care Visit Reporton 0 03-01-2024 Urgent Care Visit Report [facility] [address], [address] [place], [place] [address] OFFICE VISIT Date of Service: 03/01/24 MR#: [id number] Acct: [id number] Name: TIMOTHY UNDERWOOD Rep #: [id number] : 1955 Provider: JENNIFER Garcia Age/Sex: 68/M Location[facility] Status: Signed Intake Vital Signs 03/01/24 09:02 Height 5 ft 8 in Weight: 233 lb BMI 35.4 BP 132/80 H Blood Pressure Location Lt brachial Position Sitting Respiration 16 Pulse 86 Pulse Source Monitor Temp 98 F Temp Source Temporal Pulse Oximetry (%) 99 Oxygen Delivery Method room air Intake Visit Reasons: BILAT EAR PAIN Allergies No Known Allergies Allergy (Verified 03/01/24 09:02) Medications ???Medication ???Instructions ???Recorded ???Confirmed ???Type polymyxin B sulfate 10,000 10 ml OP 4X/DAY ##1 //03/01/24 Rx unit-trimethoprim 1 mg/mL eye drops (Polytrim) amoxicillin 875 mg-potassium 1 tab PO BID 7 days #14 tabs 03/01/24 03/01/24 Rx clavulanate 125 mg tablet ciprofloxacin 0.3 %-dexamethasone 4 drp otic (ear) BID 7 days #7.5 mL 03/01/24 03/01/24 Rx 0.1 % ear drops,suspension Have you fallen in the past year?: No PFSH Social History Smoking Status: Current some day smoker HPI HPI Details: TIMOTHY UNDERWOOD, is a 68 M who presents to the office today for ear pain -ear pain started on , both ears left worse than right -has pus in ear -wears bilateral hearing aids -denies fever or chills -gets congested all the time but denies any recent uri -no recent travel or swimming -tried so far peroxide and aleve ROS Const Constitutional: Positive for other (ROS negative x6 except what was placed in HPI) Exam Const General: cooperative, comfortable and no acute distress Orientation: alert, awake and oriented x3 HENMT Head: normal to inspection and normocephalic Ears: hearing grossly normal bilaterally (wears bilateral hearing aids), external ear abnormal auricular tenderness, TM abnormal bulging bilaterally and other (external canals with edema- c rusting no drainage ) Nose: external nose normal and other (+ congestion and rhinorrhea) Face and sinus: normal facial exam, sinuses nontender and face symmetric Mouth: oral mucosae normal, lip normal, tongue normal, oropharynx normal and moist mucous membranes Throat: posterior oropharynx normal, tonsils normal and uvula midline Neck Neck: normal visual inspection, full ROM and no lymphadenopathy Resp Effort Inspection: normal respiratory effort, able to speak in complete sentences and symmetric chest movement Auscultation: Bilateral: Clear to Auscultation, Left: Clear to Auscultation and Right: Clear to Auscultation Cardio Rate: regular rate Rhythm: regular rhythm Heart Sounds: S1 normal and S2 normal GI Auscultation: normal bowel sounds Palpation: soft Skin General: no rashes or lesions noted and turgor normal Neuro General: patient alert, patient awake and patient oriented x3 Cognition: normal cognition Speech: speech normal Psych Appearance: grossly normal Mental Status: mental status grossly normal Attitude: cooperative Thought Process: normal Thought Content: normal Coding Level of Care Code Off vis,est,level 3 Diagnoses Other infective acute otitis externa of both ears H60.393 Chronicity: acute Laterality: bilateral Otitis externa type: other infective Bilateral otitis media, unspecified otitis media type H66.93 Laterality: bilateral Otitis media type: unspecified Assessment and Plan Assessment and Plan (1) Otitis externa: Status: Acute Qualifiers: Chronicity: acute Laterality: bilateral Otitis externa type: other infective Qualified Code(s): H60.393 - Other infective otitis externa, bilateral (2) Otitis media: Status: Acute Qualifiers: Laterality: bilateral Otitis media type: unspecified Qualified Code(s): H66.93 - Otitis media, unspecified, bilateral Medications: New amoxicillin-pot clavulanate 875-125 mg 1 TAB PO BID 14 tabs 0RF 7 days ciprofloxacin-dexame thasone 0.3-0.1 % both ears 4 drps otic (ear) BID 7.5 mL 0RF 7 days Plan -take full course of atb even if feeling better -avoid getting wet- do not put peroxide in ear -try and not wearing hearing aids as much as possible for the next couple of days or until swelling improves -Tylenol or ibuprofen as needed Please follow up with your Primary Care Physician for ongoing chronic problems. If symptoms change or worsen, please present to Emergency Room for further evaluation 1. See visit diagnoses, disposition, and orders. 2. Reviewed and updated medication list; Discussed probable diagnosis, test results if available in office today and management options with patient/guardian: agreed to the medical plan above 3. Ed (more content not included)... Normal [facility] Chest PA and Lateralon 01-08 Chest PA and Lateral [facility] [address] [place], [place] [address] Chest PA and Lateral MR#: [id number] Acct: [id number] Name: TIMOTHY UNDERWOOD Rep #: [id number] : 1955 M 68 From: Flip Holbrook MD PCP: Dr. Christopher Reese MD Status: [facility] Study: Chest PA and Lateral Date of Exam: 01/09/24 Exam# [id number] Ordering Dr: Christopher Reese [id number] INDICATION: COUGH EXAMINATION/TECHNIQU E: X-RAY - XR Chest 2 Views COMPARISON: 09/26/2016. ____ FINDINGS: LINES/DEVICES: None. LUNGS: No consolidation, edema or effusion. No pneumothorax. MEDIASTINUM AND CARDIOVASCULAR STRUCTURES: Cardiac silhouette not enlarged. BONES AND SOFT TISSUES: Unremarkable. RAD/Chest PA and Lateral IMPRESSION: No radiographic evidence of acute cardiopulmonary disease. Electronically Signed: Flip Holbrook MD at 18:51 EDT , CC: Dr. Christopher Reese MD Pulling Unit Operator: Signed Normal [facility] Absolute lymphocyte countOrd ered By: Dr. Reese on 12-16-2022 Lymphocytes Auto (Unsp spec) [#/Vol] 1.68 10*3/uL 0.83-4.51 [facility] Basophil percentageOrdered B y: Dr. Reese on 12-16-2022 Basophils/100 WBC (Bld) 0.5 % 0-1 [facility] Bilirubin [Mass/Vol] 0.30 mg/dL 0.20-1.00 [facility] Comment on above: For patients on eltr ombopag therapy, use of Dimension Arboles TBIL is not recommended. Chloride [Moles/Vol] 108 mmol/L 98-107 [facility] Cholesterol [Mass/Vol] 175 mg/dL <200 [facility] Comment on above: <200 mg/dL Desirable 200-240 mg/dL Borderline >240 mg/dL High Risk Eosinophils/100 WBC (Bld) 2.2 % 0-5 [facility] Glucose [Mass/Vol] 113 mg/dL 74-106 [facility] Comment on above: Fasting Glucose resu lt from 100 to 125 mg/dL suggests IMPAIRED HOMEOSTASIS per A.D.A. criteria. Neutrophils (Bld) [#/Vol] 3.7 10*3/uL 2.0-7.7 [facility] Neutrophils/100 WBC (Bld) 60.6 % 47-70 [facility] Potassium [Moles/Vol] 5.0 mmol/L 3.5-5.1 [facility] Protein [Mass/Vol] 6.9 g/dL 6.4-8.2 [facility] Sodium [Moles/Vol] 140 mmol/L 136-145 [facility] Triglyceride [Mass/Vol] 72 mg/dL <199 [facility] Comment on above: The drugs N-Acetylcy steine and Metamizole may falsely depress this assay.Serum Triglycerides Reference Interval Normal <150 mg/dL Borderline high 150 - 199 mg/dL High 200 - 499 mg/dL Very High > or = 500 mg/dL WBC (Bld) [#/Vol] 6.0 10*3/uL 4.4-11.0 [facility] Blood erythrocytes count (nu mber/volume)Ordered By: Dr. Reese on 12-16-2022 RBC (Bld) [#/Vol] 4.81 10*6/uL 4.6-6.2 [facility] Blood hemoglobin measurement (mass/volume)Ordered By: Dr. Reese on 12-16-2022 Hemoglobin (Bld) [Mass/Vol] 15.0 g/dL 13.0-16.5 [facility] Blood lymphocytes/100 leukoc ytesOrdered By: Dr. Reese on 12-16-2022 Lymphocytes/100 WBC (Bld) 28.0 % 19-41 [facility] Blood monocytes/100 leukocyt esOrdered By: Dr. Reese on 12-16-2022 Monocytes/100 WBC (Bld) 8.5 % 0-10 [facility] Blood platelet mean volumeOr dered By: Dr. Reese on 12-16-2022 Platelet mean volume (Bld) [Entitic vol] 10.9 fL 6.2-12.0 [facility] Determination of erythrocyte mean corpuscular volume (MCV)Ordered By: Dr. Reese on 12-16-2022 MCV (RBC) [Entitic vol] 92.5 fL 80-94 [facility] Hematocrit Auto (Bld) [Volum e fraction]Ordered By: Dr. Reese on 12-16-2022 Hematocrit (Bld) [Volume fraction] 44.5 % 40-54 [facility] Laboratory - Chemistry and C hemistry - challengeOrdered By: Dr. Reese on 12-16-2022 ALP [Catalytic activity/Vol] 72 U/L 45-117 [facility] ALT [Catalytic activity/Vol] 36 U/L 16-61 [facility] CO2 [Moles/Vol] 28.0 mmol/L 21.0-32.0 [facility] Globulin (S) [Mass/Vol] 3.2 g/dL 2.2-4.2 [facility] Urea nitrogen/Creatinine [Mass ratio] 17.4 mg/mg 10-20 [facility] Laboratory - Hematology and Cell countsOrdered By: Dr. Reese on 12-16-2022 Erythrocyte distribution width (RBC) [Entitic vol] 42.8 fL 35.1-43.9 [facility] Erythrocyte distribution width (RBC) [Ratio] 12.5 % 11.6-14.6 [facility] Immature granulocytes/100 WBC (Bld) 0.200 % 0.0-0.9 [facility] Comment on above: IG% - Immature Granu locytes (promyelocytes, myelocytes and metamyelocytes) > 1% indicates that a LEFT SHIFT is Present. MCH (RBC) [Entitic mass] 31.2 pg 27.0-32.0 [facility] Nucleated RBC/100 WBC (Bld) [Ratio] 0 % 0-5 [facility] MCHC Auto (RBC) [Mass/Vol]Or dered By: Dr. Reese on 12-16-2022 MCHC (RBC) [Mass/Vol] 33.7 g/dL 32-36 [facility] No Panel InformationOrdered By: Dr. Reese on 12-16-2022 Estimated GFR (MDRD) Amer 86 mL/min >60 [facility] Comment on above: GFR Calc Estimated GFR (MDRD) Non-Af Amer 71 mL/min >60 [facility] Comment on above: Non- GFR Calc Prostate Specific Antigen Screen 1.55 ng/mL 0.00-4.00 [facility] Comment on above: This test was perfor med using the TPSA assay method for the[employer] chemistry system. Values obtained with differentassay methods cannot be used interchangably.When changing PSA assays in the course of monitoring apatient, additional sequential testing should be carriedout to confirm baseline values. Platelets bldOrdered By: Dr. Reese on 12-16-2022 Platelets (Bld) [#/Vol] 236 10*3/uL 150-450 [facility] Serum or plasma albumin heidy urement (mass/volume)Ordered By: Dr. Reese on 12-16-2022 Albumin [Mass/Vol] 3.7 g/dL 3.2-5.0 [facility] Serum or plasma albumin/glob ulin mass ratioOrdered By: Dr. Reese on 12-16-2022 Albumin/Globulin [Mass ratio] 1.2 {ratio} 0.9-2.4 [facility] Serum or plasma calcium heidy urement (mass/volume)Ordered By: Dr. Reese on 12-16-2022 Calcium [Mass/Vol] 9.1 mg/dL 8.5-10.1 [facility] Serum or plasma cholesterol in HDL measurement (mass/volume)Ordered By: Dr. Reese on 12-16-2022 Cholesterol in HDL [Mass/Vol] 37 mg/dL >40 [facility] Comment on above: The drugs N-Acetylcy steine and Metamizole may falsely depress this assay. Reference Range HDL <40 mg/dL Low HDL Cholesterol HDL >or= 60 mg/dL High HDL Cholesterol Serum or plasma cholesterol in VLDL measurement (mass/volume)Ordered By: Dr. Reese on 12-16-2022 Cholesterol in VLDL [Mass/Vol] 14 mg/dL 5-40 [facility] Serum or plasma creatinine m easurement (mass/volume)Ordered By: Dr. Reese on 12-16-2022 Creatinine [Mass/Vol] 1.09 mg/dL 0.70-1.30 [facility] Comment on above: The validity of the calculated GFR & GFRAA in patients over 70 years has not been determined. Clinical correlation is essential. Serum or plasma low density lipoprotein (LDL) cholesterol measurement (mass/volume)Ordered By: Dr. Reese on 12-16-2022 Cholesterol in LDL [Mass/Vol] 124 mg/dL 0-130 [facility] Serum or plasma urea nitroge n measurement (mass/volume)Ordered By: Dr. eRese on 12-16-2022 Urea nitrogen [Mass/Vol] 19 mg/dL 7-18 [facility] Thin prep Papanicolaou smear with manual screeningOrdered By: Dr. Reese on 12-16-2022 Thin prep Papanicolaou smear with manual screening 17 U/L 15-37 [facility] Thin prep Papanicolaou smear with manual screening 4 5-15 [facility] Encounters Encounter Date Encounter Type Care Provider Facility Start: 08-15-2024 End: 08-15-2024 [facility] [place] Facility:[facility] Start: 06-14-2024 End: 06-14-2024 ambulatory [facility] Facility:[facility] Start: 03-01-2024 End: 03-01-2024 ambulatory Christopher [place]ese [place]: 01-09-2024 End: 01-09-2024 ambulatory Por[place]ine Hugh Facility:[facility] Start: 08-07-2023 End: 08-07-2023 ambulatory [facility] Work Phone: Start: 08-07-2023 End: 08-07-2023 Patient encounter procedure [facility]-Cat Scan, [facility] Work Phone: Start: 12-16-2022 End: 12-16-2022 ambulatory [facility] Work Phone: Start: 12-16-2022 End: 12-16-2022 Patient encounter procedure [facility]-Laboratory Start: 06-19-2022 Non-patient / Non-visit Dr. Karson Reese Work Phone: [facility] Start: 06-19-2022 End: 06-19-[address] Radames Reese Work Phone: [facility] Work Phone: Start: 06-19-2022 End: 06-19-[address] Radames Reese Work Phone: [facility]-Cardiovascul ar Services Procedures Date Procedure Procedure Detail Performing Clinician Start: 08-07-2023 CT of chest Payers Date Payer Category Payer Medicare [id number] 2024 Self-pay [id number] 2024 Unknown [id number] 2013 Unknown [employer] [id number] Unknown ANTHEM [id number] Unknown [id number] [id number] [id number] Unknown [id number] [id number] [id number] Unknown [id number] 2.16.8 [id number] Unknown [id number] [id number] Social History Date Type Detail Facility Start: 11-12-2016 End: 11-12-2016 Tobacco smoking status NHIS Unknown if ever smoked [facility] Start: 1955 Sex Assigned At Male [facility] Evaluation note Note Date & Type Note Facility Evaluation note No assessment information availa ble [facility] Work Phone: Chief Complaint and Reason for Visit Chief Complaint ARRHYTHMIA Chief Complaint EORDER Chief Complaint TOBACCO USE Advance Directives No Advanced Directives Records Found Advance Directive Response Recorded Date/ Time Living Will Yes November 12, 2016 12:31pm Power of Hosiery Looper Yes November 12 12:31pm Advance Directive Response Recorded Date/ Time Living Will Yes November 12, 2016 1:31pm Power of Hosiery Looper Yes November 12 1:31pm Summary Purpose Family History No Family History Records Found Additional Source Comments Goals (unrecognized section and content) Goals may be documented in a n alternate sectionGoals may be documented in an alternate sectionGoals may be documented in an alternate section Care Teams (unrecognized sec tion and content) Team Status: Active Member Role Status Dates Dr. Radames Reese MD Family Provider Active Dr. Radames Reese MD Primary Care Provider Activ e Team Status: Inactive Member Role Status Dates Dr. Radames Reese MD Primary Care Provider, Attending Provider, Referring Provider Active (unrecognized sect ion and content) No Status Records Found INFORMATION SOURCE (unrecogn ized section and content) DATE CREATED AUTHOR 09/12/2024 [facility] FOR RECORDS PERTAINING TO PATIENTS WHO ARE OR HAVE BEEN ENROLLED IN A CHEMICAL DEPENDENCY/SUBSTANCEABUSE PROGRAM, SOME INFORMATION MAY BE OMITTED. This clinical summary was aggregated from multiple sources. Caution should be exercised in using it in the provision of clinical care. This summary normalizes information from multiple sources, and as a consequence, information in this document may materially change the coding, format and clinical context of patient data. In addition, data may be omitted in some cases. CLINICAL DECISIONS SHOULD BE BASED ON THE PRIMARY CLINICAL RECORDS. [facility] provides no warranty or guarantee of the accuracy or completeness of information in this document.
[2025-04-01 08:52] LABS: Creatinine, Urine (random) 67.40 mg/dL (39.00-259.00)
== END | disposition home or self-care (01) ==
LOC: LABSPEC 04-01 07:14
PROVIDERS: PCP Family Medicine; Referring Provider Family Medicine; Visit Provider Family Medicine
DX: E11.9 Type 2 diabetes mellitus without complications (principal)
CPT/HCPCS: 82043; 82570

== ENCOUNTER 2025-06-26 07:19 | Observation (INO) | payer MEDICARE, OTHER, SELFPAY ==
[2025-06-15 09:50] LABS: Hematocrit 42.5 % (40-54); Hemoglobin 14.5 g/dL (13.0-16.5); Mean Corp Hgb Conc 34.1 g/dL (32-36); Mean Corpuscular Volume 94.0 fL (80-94); Mean Platelet Vol. 11.2 fl (6.2-12.0); Platelet Count 268 K/mm3 (150-450); RBC Distribution Width CV 12.2 % (11.6-14.6); RBC Distribution Width SD 42.5 fl (35.1-43.9); Red Blood Count 4.52 M/mm3 (4.6-6.2); White Blood Count 8.8 K/mm3 (4.4-11.0)
[2025-06-15 10:37] LABS: Anion Gap 8 (5-15); BUN 19 mg/dL (4-19); BUN/Creat Ratio 22.6 RATIO (10-20); Calcium,Total 9.6 mg/dL (7.6-11.0); Carbon Dioxide 27.4 mmol/L (21.0-32.0); Chloride 105 mmol/L (98-108); Glucose 121 mg/dL (70-99); Potassium 5.0 mmol/L (3.3-5.1)
--- NOTE | 2025-06-16 17:16 | PAT.ANE_ITS ---
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 When Was Last Pacemaker Check QUESTION #4 FULL TEXT: You/Your Family Experience fever (hyperthermia) with Anesthesia Last Oral Intake Last Oral intake: Last Oral Intake NPO since Meds taken in AM with sips of water? 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 Female No 06/16/25 14:18 HX of Motion Sickness No 06/16/25 14:18 HX of N/V After Surgery No 06/16/25 14:18 Non-Smoker Yes 06/16/25 14:18 Duration of Surgery greater Yes 06/16/25 14:18 than 60 minutes Number of Risk Factors 2 06/16/25 14:18 PONV Score Moderate Risk 06/16/25 14:18 Height & Weight Height & Weight: Anesthesia: Height & Weight Height 5 ft 8 in 03/01/24 09:02 Respiratory Assessment Respiratory Assessment - dough cutting machine operator: Respiratory Tract Infection Hx - dough cutting machine operator Hx Respiratory Tract Infection No 06/16/25 14:18 STOP Sleep Apnea STOP Sleep Apnea - dough cutting machine operator: STOP Sleep Apnea - dough cutting machine operator Hx Hypertension No 06/16/25 14:18 Hx Sleep Apnea No 06/16/25 14:18 CPAP BIPAP Do you snore loudly (louder No 06/16/25 14:18 than talking or can be heard Do you often feel tired/ No 06/16/25 14:18 fatigued/ sleepy during daytime? Has anyone observed you stop No 06/16/25 14:18 breathing during sleep? STOP Results Negative 06/16/25 14:18 QUESTION #5 FULL TEXT : Do you snore loudly (louder than talking or can be heard through closed doors)? 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 Specify any problems Hx of Preganancy in last 3 N/A 06/16/25 14:18 Months Nurse Filling Out Transfusion [email or web address] 06/16/25 14:18 & Questions: Date: 06/16/25 06/16/25 14:18 Time: 14:24 06/16/25 14:18 Patient unable to answer at this time (ie. 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 operator: /Reproductive Hx- dough cutting machine operator Hx Now Gestational Age (in weeks): EDC: Hx Hx Para Hx Section SAB PFSH Medical History (Updated 06/16/25 @ 14:36 by Cordell Sawyer) Wears partial dentures Wears hearing aid Loss of hearing Wears glasses BPH (benign prostatic hyperplasia) High cholesterol Arthritis Syncope Injury of head and neck Smoker COPD (chronic obstructive pulmonary disease) Hoarseness Chronic cough Shortness of breath on exertion Gastric reflux Hypertension Carpal tunnel syndrome History of echocardiogram Home Medications ?Medication ?Instructions ?Recorded ?Last Taken ?Type polymyxin B sulfate 10,000 10 ml OP 4X/DAY ##1 7 Unknown Rx unit-trimethoprim 1 mg/mL eye drops (Polytrim) albuterol sulfate 90 mcg/actuation 2 inh inhalation Q6 H PRN shortness 06/16/25 Unknown History aerosol inhaler (Ventolin HFA) of breath or wheezing aspirin 81 mg capsule 81 mg PO DAILY 06/16/25 Unkn own History beet root 1 tab PO BID 06/16/25 Unknow n History capsicum (cayenne) 250 mg capsule 250 mg PO DAILY 12/05 Unknown History cinnamon bark 500 mg capsule 500 mg PO DAILY 06/16/25 Unknown History (Cinnamon) dutasteride 0.5 mg capsule 0.5 mg PO DAILY 06/16/25 Un known History kaur root extract 15 mg chewable 15 mg PO DAILY 12/05 Unknown History tablet (Advanced Herbals Kaur) multivitamin (Daily Multi-Vitamin 1 tab PO DAILY 06/16 Unknown History tablet) omega 7-sap-zlv-fish oil 1,200 mg 1 cap PO DAILY 06/16 Unknown History (144 mg-216 mg) capsule (Fish Oil) omeprazole 20 mg capsule,delayed 20 mg PO DAILY Unknown History release saw palmetto 160 mg capsule 160 mg PO DAILY 06/16/25 U nknown History tamsulosin 0.4 mg capsule 0.8 mg PO QHS 06/16/25 Unkno wn History Allergy/AdvReac Type Severity Reaction Status Date / Time No Known Allergies Allergy Verified 06/16/25 14:14 Surgical History (Updated 06/16/25 @ 14:36 by Cordell Sawyer) H/O neck surgery H/O hernia repair Social History Smoking Status: Current some day smoker tobacco type: cigarettes Audit: Pertinent Findings Pertinent Findings EKG Perinent findings: June 15, 2025. Sinus rhythm with occasional PVCs and possible PACs with aberrant conduction. Nonspecific ST and T wave abnormality. Echo (EF%) pertinent findings: 06/19/2022. LV systolic function was normal. EF is 65%. No aortic stenosis noted. Recommendation Anesthesia Recommendation Anesthesia recommendation: OPTIMIZED for anesthesia
[2025-06-26] VITALS (16 sets, daily range): BP systolic 116–155; BP diastolic 68–86; PULSE 71–92; RESP 12–18; TEMP 36.1–36.8; O2SAT 94–100; BMI 34.8
[2025-06-26] MEDS: Lactated Ringers 1,000 ML 15 ML IV (06:36)
--- NOTE | 2025-06-26 07:05 | PRE.ANES_ITS ---
ASA Classification* ASA Classification ASA Classification: 3 Assessment & Plan Anesthesia* Anesthesia Assessment Anesthesia Assessment: Discussed sedation and/or anesthesia options, risks, benefits, and alternatives with patient/parents/legal guardian/POA. Questions invited. The patient/parents/legal guardian/POA seems to understand and agrees to proceed with anesthesia plan. Reviewed the physical assessment, medical history, allergy history and patient home medications list prior to surgery/procedure/anesthetic and documented any changes. Performed airway and anesthesia risk assessments. Anesthesia Type Anesthesia Type: General History Source History Obtained from:: Patient and Chart Anesthesia Focused Assessment* Temperature: 97.4 F Pulse Rate: 79 Blood Pressure: 145/86 Respiratory Rate: 16 Pulse Ox: 99 Oxygen Delivery Method: Room Air Airway Assessment Mouth opens: >3 cm Mallampati Score: I Teeth Condition: Partial (upper and lower- already out) Neck Range of motion (ROM): Full ROM Labs Anesthesia Preop lab: CBC WBC, (4.4-11.0) 8.8 K/mm3 06/15/25, 08:55 RBC, (4.6-6.2) 4.52 M/mm3 L 06/15/25, 08:55 Hgb, (13.0-16.5) 14.5 g/dL 06/15/25, 08:55 Hct, (40-54) 42.5 % 06/15/25, 08:55 Plt Count, (150-450) 268 K/mm3 06/15/25, 08:55 CHEMISTRY Potassium, (3.3-5.1) 5.0 mmol/L 06/15/25, 08:55 Sodium, (133-145) 140 mmol/L 06/15/25, 08:55 BUN, (4-19) 19 mg/dL 06/15/25, 08:55 Creatinine, (0.70-1.20) 0.85 mg/dL 06/15/25, 08:55 Glucose, (70-99) 121 mg/dL H 06/15/25, 08:55 TSH, (0.358-3.740) 3.160 uIU/mL 06/14/24, 07:50 COAG Pre-Assessment Diagnosis/Proposed Procedure Planned Operative Procedure(s): TRANSURETEHRAL RESECTION OF PROSTATE Anesthesia History 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 When Was Last Pacemaker Check QUESTION #4 FULL TEXT: You/Your Family Experience fever (hyperthermia) with Anesthesia Last Oral Intake Last Oral intake: Last Oral Intake NPO since 19:00 06/26/25 06:17 Meds taken in AM with sips of No 06/26/25 06:17 water? 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 manager Female No 06/16/25 14:18 HX of Motion Sickness No 06/16/25 14:18 HX of N/V After Surgery No 06/16/25 14:18 Non-Smoker Yes 06/16/25 14:18 Duration of Surgery greater Yes 06/16/25 14:18 than 60 minutes Number of Risk Factors 2 06/16/25 14:18 PONV Score Moderate Risk 06/16/25 14:18 Height & Weight Height & Weight: Anesthesia: Height & Weight Height 5 ft 8 in 06/26/25 06:17 Weight: 104 kg 06/26/25 06:17 Body Mass Index (BMI) 34.8 06/26/25 06:17 Respiratory Assessment Respiratory Assessment - assistant guest services manager: Respiratory Tract Infection Hx - assistant guest services manager Hx Respiratory Tract Infection No 06/16/25 14:18 STOP Sleep Apnea STOP Sleep Apnea - assistant guest services manager: STOP Sleep Apnea - assistant guest services manager Hx Hypertension No 06/16/25 14:18 Hx Sleep Apnea No 06/16/25 14:18 CPAP BIPAP Do you snore loudly (louder No 06/16/25 14:18 than talking or can be heard Do you often feel tired/ No 06/16/25 14:18 fatigued/ sleepy during daytime? Has anyone observed you stop No 06/16/25 14:18 breathing during sleep? STOP Results Negative 06/16/25 14:18 QUESTION #5 FULL TEXT : Do you snore loudly (louder than talking or can be heard through closed doors)? 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 Specify any problems Hx of Preganancy in last 3 N/A 06/16/25 14:18 Months Nurse Filling Out Transfusion [email or web address] 06/16/25 14:18 & Questions: Date: 06/16/25 06/16/25 14:18 Time: 14:24 06/16/25 14:18 Patient unable to answer at this time (ie. confused, unrespo /Reproduction History /Reproductive History - assistant guest services manager: /Reproductive Hx- assistant guest services manager Hx Now Gestational Age (in weeks): EDC: Hx Hx Para Hx Section SAB Does the father of the baby or his family experience fever w Father of the baby Malignant Hypertension history comment Active Medications Active Medications: Current Medications Generic Name Dose Route Start Last Admin Trade Name Freq PRN Reason Stop Dose Admin Cefazolin Sodium 2 gm/ Sodium 110 mls @ 200 mls/hr 06/26/25 07:00 Chloride IV 06/26/25 07:32 INTRAOP ONE Lactated Ringer's 1,000 mls @ 15 mls/hr 06/26/25 06:15 06/26/25 06:36 IV 15 mls/hr .Q48H BUDDY Administration PFSH Medical History Wears partial dentures Wears hearing aid Loss of hearing Wears glasses BPH (benign prostatic hyperplasia) High cholesterol Arthritis Syncope Injury of head and neck Smoker COPD (chronic obstructive pulmonary disease) Hoarseness Chronic cough Shortness of breath on exertion Gastric reflux Hypertension Carpal tunnel syndrome History of echocardiogram Home Medications ?Medication ?Instructions ?Recorded ?Last Taken ?Type polymyxin B sulfate 10,000 10 ml OP 4X/DAY ##1 7 Unknown Rx unit-trimethoprim 1 mg/mL eye drops (Polytrim) albuterol sulfate 90 mcg/actuation 2 inh inhalation Q6 H PRN shortness 06/16/25 Unknown History aerosol inhaler (Ventolin HFA) of breath or wheezing aspirin 81 mg capsule 81 mg PO DAILY 06/16/25 Unkn own History beet root 1 tab PO BID 06/16/25 Unknow n History capsicum (cayenne) 250 mg capsule 250 mg PO DAILY 12/05 Unknown History cinnamon bark 500 mg capsule 500 mg PO DAILY 06/16/25 Unknown History (Cinnamon) dutasteride 0.5 mg capsule 0.5 mg PO DAILY 06/16/25 Un known History maryan root extract 15 mg chewable 15 mg PO DAILY 12/05 Unknown History tablet (Advanced Herbals Maryan) multivitamin (Daily Multi-Vitamin 1 tab PO DAILY 06/16 Unknown History tablet) omega 0-tej-coq-fish oil 1,200 mg 1 cap PO DAILY 06/16 Unknown History (144 mg-216 mg) capsule (Fish Oil) omeprazole 20 mg capsule,delayed 20 mg PO DAILY Unknown History release saw palmetto 160 mg capsule 160 mg PO DAILY 06/16/25 U nknown History tamsulosin 0.4 mg capsule 0.8 mg PO QHS 06/16/25 Unkno wn History Allergy/AdvReac Type Severity Reaction Status Date / Time No Known Allergies Allergy Verified 06/26/25 06:15 Surgical History H/O neck surgery H/O hernia repair Social History Smoking Status: Current some day smoker tobacco type: cigarettes Review of Systems (Anesthesia) ROS Narrative System reviewed and no additional complaints, except as documented.
--- NOTE | 2025-06-26 07:21 | DCINST_ITS ---
Discharge Instructions DC O2, CPAP, BIPAP needs Home O2 Discharge instructions: No Dressing / Incision Discharge Activity: Return to Normal Activity and May Not Drive (while taking narcotic pain medications.) Dressing / Incision Call your doctor if you observe: Fever of 101 or Higher Follow Up Care Please Follow Up With: Marcin Joe MD When: Call [phone] for an appointment Test Results: Test results from this visit will be discussed in further detail at your follow- up appointment, if applicable. Discharge Plan Admission Primary Reason for Your Visit: turp Attending Provider: Marcin Joe Primary Care Provider: Christopher Reese Instructions Print Language: Citizen Of [place] Discharge Orders/Prescriptions Prescriptions: New ciprofloxacin HCl [Cipro] 500 mg tablet 500 mg PO BID Qty: 20 0RF Continued polymyxin B sulf-trimethoprim [Polytrim] 10 ML drops 10 ml OP 4X/DAY Qty: 1 0RF tamsulosin 0.4 mg capsule 0.8 mg PO QHS dutasteride 0.5 mg capsule 0.5 mg PO DAILY aspirin 81 mg capsule 81 mg PO DAILY multivitamin [Daily Multi-Vitamin] Tablet 1 tab PO DAILY Advanced Herbals Kaur 15 mg tablet,chewable 15 mg PO DAILY capsicum (cayenne) 250 mg capsule 250 mg PO DAILY cinnamon bark [Cinnamon] 500 mg capsule 500 mg PO DAILY beet root 1 tab PO BID saw palmetto 160 mg capsule 160 mg PO DAILY albuterol sulfate [Ventolin HFA] 90 mcg/actuation HFA aerosol inhaler 2 inh inhalation Q6H PRN (Reason: shortness of breath or wheezing) omeprazole 20 mg capsule,delayed release(DR/EC) 20 mg PO DAILY omega 8-mns-qav-fish oil [Fish Oil] 1,200 (144-216) mg capsule 1 cap PO DAILY Referrals / Follow Up: Christopher Reese MD [Primary Care Provider, Family Practice] Marcin Joe MD [Med Staff - Active Staff, Urology] Disposition Disposition (needs filled in before D/C Order can be placed): Home, Self Care
[2025-06-26] MEDS: Cefazolin 1 GM/5 ML Vial 2 GM IV (07:30)
[2025-06-26] MEDS: Lidocaine 1% (5 ml sdv) 5 ML Vial IV (07:34)
[2025-06-26] MEDS: Midazolam 2 MG/2 ML Syringe IV (07:34)
[2025-06-26] MEDS: fentaNYL 100 MCG/2 ML Ampul 200 MCG IV (08:04)
--- NOTE | 2025-06-26 08:06 | OP.PCM_ITS ---
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 We discussed how a prostate resection is done a nd we discussed the risk of the surgery including, bleeding, infection, retrograde ejaculation, changes with ejaculation or intercourse,. We discussed the possibility that the resection of the prostate may not alleviate his urinary symptoms. We discussed the small risk of developing scar tissue along the urethral channel and strictures. We also discussed the chance of the prostate could grow back and he may need further surgery or treatment in the future for prostate problems. Patient was taken back to the operating room, timeout procedure was performed, he was identified and marked and placed on the operating room table. He underwent general anesthesia. He was placed in dorsolithotomy position. Penis and testicles were prepped and draped in usual sterile fashion. Went into the bladder using the visual obturator with a resectoscope. Once inside the bladder identified the right and left ureteral orifice. I then identified the prostate and the anatomy of the prostate. I marked out the area of the sphincter and the verumontanum was identified. I then proceeded with the prostate resection first resected the median lobe. And then resected the right lobe of the prostate. Th en to resect the left lobe of the prostate. I then resected the apical tissue of the prostate. This was a complete resection of all obstructive tissue to improve voiding and relieve obstruction. I then made sure that there was no injury to the sphincter or the verumontanum was still intact. At the end of the resection all the chips were Ellik out of the bladder. I then identified the left and right ureteral orifice and these were confirmed to be in good position and effluxing and not injured. The resectoscope was removed, a 22 Malay catheter was placed into the bladder on continuous irrigation. And the urine was fairly light pink color and draining normally. He was taken back to the PACU in good condition. CPT 78594 Surgical Findings: turp with Complications Complications: No Admit VTE Documentation VTE Present on Admission: No VTE Mechan Device Prophylaxis: SCD's VTE Pharm Prophylaxis ordered?: No
--- NOTE | 2025-06-26 08:21 | PCM.POST.ANE ---
Anesthesia: Postop Eval I Current Vital Signs Temperature: 96.9 F Pulse Rate: 92 Blood Pressure: 127/68 Respiratory Rate: 12 Pulse Ox: 98 Oxygen Delivery Method: Nasal Cannula Oxygen Flow Rate (L/min): 2 Assessment Airway patent: Yes Spontaneous unlabored respirations: Yes Mental status: Awake and Calm nausea: No Vomiting: No Anesthesia Complication: No Fluid Hydration Crystalloid volume administer (ml): 800 Total IV fluid infused: 800 Progress Note Anesthesia document: Postop Eval 1 completed: Yes
--- NOTE | 2025-06-26 09:22 | POSTOPAN2_ITS ---
Anesthesia Postop Eval I Sum Postop Eval Completion status Anesthesia document: Postop Eval 1 completed: Yes Anesthesia Postop Eval I Summary Anesthesia Postop Eval I Summary: Anesthesia Postop Eval I: Assessment Summary Airway patent Yes 06/26/25 08:23 [email or web address] [email or web address] Spontaneous unlabored Yes 06/26/25 08:23 [email or web address] [email or web address] respirations Mental status Awake,Calm 06/26/25 08:23 [email or web address] [email or web address] nausea No 06/26/25 08:23 [email or web address] [email or web address] Vomiting No 06/26/25 08:23 [email or web address] [email or web address] Anesthesia Postop Eval I: Fluid Summary Crystalloid volume administer 800 06/26/25 08:23 [email or web address] [email or web address] (ml) Colloids volume administered ( ml) Blood Product volume administered (ml) Total IV fluid infused 800 06/26/25 08:23 [email or web address] [email or web address] Anesthesia Postop Eval I: Summary Notes Anesthesia Complication No 06/26/25 08:23 [email or web address] [email or web address] Anesthesia Complication Comment: Post-operative progress note Anesthesia: Postop Eval II Evaluation Mental status: Awake Pain Level: 3 nausea: No Vomiting: No
--- NOTE | 2025-06-26 09:22 | PCM.POSTANE2 ---
Anesthesia Postop Eval I Sum Postop Eval Completion status Anesthesia document: Postop Eval 1 completed: Yes Anesthesia Postop Eval I Summary Anesthesia Postop Eval I Summary: Anesthesia Postop Eval I: Assessment Summary Airway patent Yes 06/26/25 08:23 WATER GAS [email or web address] Spontaneous unlabored Yes 06/26/25 08:23 WATER GAS OPERATOR.SHOF respirations Mental status Awake,Calm 06/26/25 08:23 WATER GAS OPERATOR.SHOF nausea No 06/26/25 08:23 WATER GAS OPERATOR.SHOF Vomiting No 06/26/25 08:23 WATER GAS OPERATOR.SHOF Anesthesia Postop Eval I: Fluid Summary Crystalloid volume administer 800 06/26/25 08:23 WATER GAS OPERATOR.SHOF (ml) Colloids volume administered ( ml) Blood Product volume administered (ml) Total IV fluid infused 800 06/26/25 08:23 WATER GAS OPERATOR.SHOF Anesthesia Postop Eval I: Summary Notes Anesthesia Complication No 06/26/25 08:23 WATER GAS OPERATOR.SHOF Anesthesia Complication Comment: Post-operative progress note Anesthesia: Postop Eval II Evaluation Mental status: Awake Pain Level: 3 nausea: No Vomiting: No
[2025-06-26] MEDS: 0.9% Normal Saline (1000mL) 1,000 ML 125 ML IV ×2 (09:39→16:36)
[2025-06-27 01:28] VITALS: BP 143/83; PULSE 68; RESP 18; TEMP 36.4; O2SAT 97
[2025-06-27] MEDS: 0.9% Normal Saline (1000mL) 1,000 ML 125 ML IV (01:33)
[2025-06-27 05:28] VITALS: BP 137/84; PULSE 85; RESP 18; TEMP 36.6; O2SAT 96
[2025-06-27 08:30] VITALS: BP 137/83; PULSE 75; RESP 17; TEMP 36.5; O2SAT 98
--- NOTE | 2025-06-27 08:39 | NURSING ---
This RN in the room while Dr. Joe pulled out the prado.
--- NOTE | 2025-06-27 08:44 | PCM.PN.BLA ---
Progress Note Status post TURP urine is clear Botello catheter removed he can go home today after he voids
--- NOTE | 2025-06-27 09:50 | CASEMGMT ---
Met with patient to review YADAV form. YADAV form and its content were verbally explained and patient?s questions were answered to the best of my ability. Patient voiced understanding and signed YADAV form. Patient provided a copy of signed YADAV form and original placed in patient?s chart. Patient had no further questions or concerns.
== END 2025-06-27 11:25 | disposition home or self-care (01) ==
LOC: SDC 09:10 → MS3 09:10
PROVIDERS: Admitting Provider Urology; PCP Family Medicine; Referring Provider Urology; Visit Provider Urology
PROC: (CPT 52601; principal; 2025-06-26 07:20)
DX: N40.1 Benign prostatic hyperplasia with lower urinary tract symptoms (principal); J43.9 Emphysema, unspecified; N13.8 Other obstructive and reflux uropathy; R35.0 Frequency of micturition; Z79.899 Other long term (current) drug therapy; Z79.82 Long term (current) use of aspirin; I10 Essential (primary) hypertension; R32 Unspecified urinary incontinence; J45.20 Mild intermittent asthma, uncomplicated; R35.1 Nocturia; F17.210 Nicotine dependence, cigarettes, uncomplicated
CPT/HCPCS: 52601; 00914; 36415; 80048; 85027; 93005; 94640; 94668; 96361; 96365; 96366; 99221; 99406; G0378; J0744; J2405

== ENCOUNTER → 2025-08-10 | Outpatient (CLI) | payer MEDICARE, OTHER, SELFPAY ==
--- NOTE | 2025-08-10 07:32 | CT_ITS ---
PROCEDURE: EXTREMITY LOWER WITHOUT CONTRA 08/10/2025 REASON FOR EXAM: KNEE PAIN TECHNIQUE: Procedure Code: CTELWO Modality: CT Procedure: EXTREMITY LOWER WITHOUT CONTRA Coronal and Sagittal reconstruction series were provided. CONTRAST: VOLUME: mL One or more dose reduction techniques were used (e.g., Automated exposure control, adjustment of the mA and/or kV according to patient size, use of iterative reconstruction technique). RADIATION DOSE SUMMARY: CTDlvol: 56 mGy DLP: 1631 MGycm FINDINGS: Visualized portions of the abdominal and pelvic contents appear normal. Calcific aortoiliac atherosclerosis. At L5-S1 there is disc bulge and zihv-hrocbdm-warp-right foraminal stenosis. Mild marginal osseous ridging off the right acetabulum, compatible with mild arthrosis. No femoral head osteonecrosis. Mild bony hypertrophic changes off the greater trochanter. Hypertrophic spurring off all 3 compartments of the knee, compatible with arthrosis, most severely involving the patellofemoral compartment. Chronic bony fragmentation and hypertrophic spurring near the lateral tibial spine. Medial joint space narrowing with periarticular sclerosis, and mild cortical flattening of the far medial to anteromedial tibial plateau. Mild arthrosis of the proximal tibial-fibular articulation. Small chronic bone fragment off the lateral patellofemoral joint line. Slight marginal osseous ridging off the anterior tibial plafond, compatible with slight arthrosis. No plantar calcaneal spurring. Slight posterior calcaneal spurring. No talonavicular or subtalar joint arthrosis. No evidence of tarsal or proximal metatarsal fracture. No osseous lesion in the talar dome or tibial plafond. No evidence of fracture. CT/Extremity Lower without Contra IMPRESSION: Tricompartment knee joint arthrosis, most severe involving the patellofemoral c ompartment. Medial joint space narrowing with sclerosis, and cortical flattening of the medial tibial plateau. Small chronic bone fragment off the lateral patellofemoral joint line. Chronic bony fragmentation and hypertrophic spurring near the lateral tibial sp ine. Mild arthrosis of the proximal tibial-fibular articulation. Mild ankle arthrosis. Slight posterior calcaneal spurring. Mild right hip arthrosis L5-S1: Disc bulge and hcjm-[id number]-sgrc-right foraminal stenosis. Calcific aortoiliac atherosclerosis. [facility]
--- OUTSIDE RECORDS SUMMARY | 2025-08-10 07:33 | XMS RPT_ITS | CCD ---
Author Organization [facility] Inform ion Partnership [facility] Care Team Providers Care Generator Man Name Role Phone Dr. Radames Reese Primary Care Provider [phone] Dr[address] Jean Marie Beverly Attending Provider Hugh LAGOS, Dr. White Primary Care Provider Hugh LAGOS, Dr. White Attending Provider [phone] Hugh LAGOS, Dr. White Referring Provider Christopher Reese Primary Care Unavailable Marcin Joe Referring Unavailable Marcin Joe Attending Unavailable Marcin Joe Admitting Unavailable Christopher Reese Primary Care Unavailable Christopher Reese Referring Unavailable Christopher Reese Attending Unavailable Regulo REBEAMER, Amelia Referring Unavailable Regulo REBEAMER, Amelia Attending Unavailable Christopher Reese Primary Care Unavailable Medications Current Medications Medication Drug Class(es) Dates Sig (Normalized) Sig (Original) polymyxin b 80208 unt/ml / trimethoprim 1 mg/ml ophthalmic solution (4 sources) Dihydrofolate Reductase Inhibitor Antibacterial, Polymyxin-class Antibacterial Start: 11-12-2016 take 1 mL into the eye(s) four times daily Polymyxin B Sulf-Trimethopri m (Polytrim Eye Drops) 10 ML drops Active 10 mL OP 4 TIMES DAILY 1 November 12, 2016 12:00am Completed/Discontinued Medications Medication Drug Class(es) Dates Sig (Normalized) Sig (Original) amoxicillin 875 mg / clavulanate 125 mg oral tablet (1 source) Penicillin-class Antibacterial Start: 03-01-2024 End: 03-08-2024 Amoxicillin-Pot Clavulanate 875-125 mg tablet Discontinued 1 {tbl} PO TWICE A DAY 14 7 0 March 01, 2024 12:00am March 07, 2024 12:00am March 08, 2024 12:08am ciprofloxacin 3 mg/ml / dexamethasone 1 mg/ml otic suspension (1 source) Corticosteroid, Quinolone Antimicrobial Start: 03-01-2024 End: 03-08-2024 Ciprofloxacin-Dexa methasone 0.3-0.1 % drops,suspension Discontinued 4 NMA OTIC TWICE A DAY 7.5 7 0 March 01, 2024 12:00am March 07, 2024 12:00am March 08, 2024 12:08am both ears Problems Active Problems Problem Classification Problem Date Documented Da te Episodic/Chronic Diabetes mellitus without complication (1 source) Type 2 diabetes mellitus without complications; Translations: [Type 2 diabetes mellitus without complications] Onset: 04-10-2025 Chronic Other ear and sense organ disorders (1 source) Otitis externa; Translations: [Unspecified otitis externa, unspecified ear] 03-01-2024 Chronic Otitis media and related conditions (1 source) Otitis media; Translations: [Otitis media, unspecified, unspecified ear] 03-01-2024 Episodic Past or Other Problems Problem Classification Problem Date Documented Da te Episodic/Chronic Other screening for suspected conditions (not mental disorders or infectious disease) (1 source) Encounter for screening for malignant neoplasm of respiratory organs; Translations: [Encounter for screening for malignant neoplasm of respiratory organs] Onset: 09-10-2024 Episodic Results Test Name Value Interpretation Reference Range Facility MR/PATLinus 06-16-2025 MR/PATRONNI [facility] Medical Records Department [address] [place] [address] PAT - Anesthesia 06/16/25 1716 MR#: [id number] Acct: [id number] Name: TIMOTHY UNDERWOOD Rep #: [id number] : 1955 70 From: Jeffrey Hua MD PCP: Dr. 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 When Was Last Pacemaker Check QUESTION #4 FULL TEXT: You/Your Family Experience fever (hyperthermia) with Anesthesia Last Oral Intake Last Oral intake: Last Oral Intake NPO since Meds taken in AM with sips of water? 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 Female No 06/16/25 14:18 HX of Motion Sickness No 06/16/25 14:18 HX of N/V After Surgery No 06/16/25 14:18 Non-Smoker Yes 06/16/25 14:18 Duration of Surgery greater Yes 06/16/25 14:18 than 60 minutes Number of Risk Factors 2 06/16/25 14:18 PONV Score Moderate Risk 06/16/25 14:18 Height Weight Height Weight: Anesthesia: Height Weight Height 5 ft 8 in 03/01/24 09:02 Respiratory Assessment Respiratory Assessment - heat treating furnace tender: Respiratory Tract Infection Hx - heat treating 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 Has anyone observed you stop No 06/16/25 14:18 breathing during sleep? STOP Results Negative 06/16/25 14:18 QUESTION #5 FULL TEXT : Do you snore loudly (louder than talking or can be heard through closed doors)? 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 Specify any problems Hx of Preganancy in last 3 N/A 06/16/25 14:18 Months Nurse Filling Out Transfusion [email or web address] 06/16/25 14:18 Questions: Date: 06/16/25 06/16/25 14:18 Time: 14:24 06/16/25 14:18 Patient unable to answer at this time (ie. 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Recorded ???Last Taken ???Type polymyxin B sulfate 10,000 10 ml OP 4X/DAY ##1 11/12/16 Unkno wn Rx unit-trimethoprim 1 mg/mL eye drops (Polytrim) albuterol sulfate 90 mcg/actuation 2 inh inhalation Q6H PRN shortne ss 06/16/25 Unknown History aerosol inhaler (Ventolin HFA) of breath or wheezing aspirin 81 mg capsule 81 mg PO DAILY 06/16/25 Unknown Hi story beet root 1 tab PO BID 06/16/25 Unknown Hist ory capsicum (cayenne) 250 mg capsule 250 mg PO DAILY 06/16/25 Unknown (more content not included)... Normal [facility] Basic Metabolic Profile (BMP )on 06-15-2025 BUN/CRE 22.6 RATIO High 10-20 [facility] Comment on above: Performed By: #### L 100.0500, L500.2500 #### [facility] [address] [place], [address] Calcium [Mass/Vol] 9.6 mg/dL Normal 7.6-11.0 [facility] Comment on above: Performed By: #### L 100.0500, L500.2500 #### [facility] [address] [place], [address] Chloride [Moles/Vol] 105 mmol/L Normal 98-[address] [facility] Comment on above: Performed By: #### L 100.0500, L500.2500 #### [facility] [address] [place], [address] CO2 [Moles/Vol] 27.4 mmol/L Normal 21.0-32.0 [facility] Comment on above: Performed By: #### L 100.0500, L500.2500 #### [facility] [address] [place], [address] Creatinine [Mass/Vol] 0.85 mg/dL Normal 0.70-1.20 [facility] Comment on above: Performed By: #### L 100.0500, L500.2500 #### [facility] [address] [place], [address] GAP 8 Normal 5-15 [facility] Comment on above: Performed By: #### L 100.0500, L500.2500 #### [facility] [address] [place], [address] GFR/1.73 sq M.predicted among non-blacks MDRD (S/P/Bld) [Vol rate/Area] 93 mL/min/{1.73_m2} Normal >60 [facility] Comment on above: Result Comment: mL/m in/1.73m2 CKD-EPI Creatinine Equation (2020) Performed By: #### L 100.0500, L500.2500 #### [facility] [address] [place], [address] Glucose [Mass/Vol] 121 mg/dL High 70-99 [facility] Comment on above: Performed By: #### L 100.0500, L500.2500 #### [facility] [address] [place], [address] Potassium [Moles/Vol] 5.0 mmol/L Normal 3.3-5.1 [facility] Comment on above: Performed By: #### L 100.0500, L500.2500 #### [facility] [address] [place], [address] Sodium [Moles/Vol] 140 mmol/L Normal 133-145 [facility] Comment on above: Performed By: #### L 100.0500, L500.2500 #### [facility] [address] [place], [address] Urea nitrogen [Mass/Vol] 19 mg/dL Normal 4-19 [facility] Comment on above: Performed By: #### L 100.0500, L500.2500 #### [facility] [address] [place], [address] CBC-Complete Blood Cnt No Di ffon 06-15-2025 Erythrocyte distribution width (RBC) [Ratio] 12.2 % Normal 11.6-14.6 [facility] Comment on above: Performed By: #### L 100.0500, L500.2500 #### [facility] [address] [place], [address] Hematocrit (Bld) [Volume fraction] 42.5 % Normal 40-54 [facility] Comment on above: Performed By: #### L 100.0500, L500.2500 #### [facility] [address] [place], [address] Hemoglobin (Bld) [Mass/Vol] 14.5 g/dL Normal 13.0-16.5 [facility] Comment on above: Performed By: #### L 100.0500, L500.2500 #### [facility] [address] [place], [address] MCH (RBC) [Entitic mass] 32.1 pg High 27.0-32.0 [facility] Comment on above: Performed By: #### L 100.0500, L500.2500 #### [facility] [address] [place], [address] MCHC (RBC) [Mass/Vol] 34.1 g/dL Normal 32-36 [facility] Comment on above: Performed By: #### L 100.0500, L500.2500 #### [facility] [address] [place], [address] MCV (RBC) [Entitic vol] 94.0 fL Normal 80-94 [facility] Comment on above: Performed By: #### L 100.0500, L500.2500 #### [facility] [address] [place], [address] Platelet mean volume (Bld) [Entitic vol] 11.2 fL Normal 6.2-12.0 [facility] Comment on above: Performed By: #### L 100.0500, L500.2500 #### [facility] [address] [place], [address] Platelets (Bld) [#/Vol] 268 10*3/uL Normal 150-450 [facility] Comment on above: Performed By: #### L 100.0500, L500.2500 #### [facility] [address] [place], [address] RBC (Bld) [#/Vol] 4.52 10*6/uL Low 4.6-6.2 [facility] Comment on above: Performed By: #### L 100.0500, L500.2500 #### [facility] [address] [place], [address] RDW SD 42.5 fl Normal 35.1-43.9 [facility] Comment on above: Performed By: #### L 100.0500, L500.2500 #### [facility] [address] [place], [address] WBC (Bld) [#/Vol] 8.8 10*3/uL Normal 4.4-11.0 [facility] Comment on above: Performed By: #### L 100.0500, L500.2500 #### [facility] [address] [place], [address] Microalb:Creat Ratio,Random URon 04-01-2025 Creatinine [Mass/Vol] 67.40 mg/dL Normal 39.00-259.00 [facility] Comment on above: Order Comment: Order Date: 03/30/25 Order Info: [id number] - MIALB TY1 4 B MIACRE WAS WANTED PER PAPER ORDER Performed By: #### L 502.0250 #### [facility] [address] [place], [address] MALB:CREAT 39.8 mg/g CRE High <30 mg/g CRE [facility] Comment on above: Order Comment: Order Date: 03/30/25 Order Info: [id number] - MIALB TY1 4 B MIACRE WAS WANTED PER PAPER ORDER Performed By: #### L 502.0250 #### [facility] [address] [place], [address] Microalbumin,Random Urineon 03-31-2025 MICROALBUMIN,UR 26.8 mg/L Normal <20 mg/L [facility] Comment on above: Order Comment: Order Date: 03/30/25 Order Info: [id number] - MIALB Performed By: #### L 502.0500 #### [facility] [address] [place], [address] Random urine creatinine heidy urement (mass/volume)Ordered By: Christopher Reese on 03-31-2025 Creatinine Unsp time (U) [Mass/Vol] 67.40 mg/dL 39.00-259.00 [facility] Urine albumin measurement [facility] detection limit of 20 mg/L or less (mass/volume)Ordered By: Christopher Reese on 03-31-2025 Albumin DL <= 20 mg/L (U) [Mass/Vol] 26.8 mg/L <20 mg/L [facility] Low Dose CT Lung Screeningon 08-15-[address] Lung Screening [facility] Imaging Services [address] [place], [place] [address] Low Dose CT Lung Screening MR#: [id number] Acct: [id number] Name: TIMOTHY UNDERWOOD Rep #: [id number] : 1955 M 69 From: Ciaran Huerta MD PCP: Dr. Christopher Reese MD Status: [facility] CL Study: Low Dose CT Lung Screening Date of Exam: 08/15 Exam# [id number] Ordering Dr: Amelia Rajput REBEAMER REBEAMER-C [id number] STUDY: LOW DOSE CT LUNG CANCER SCREENING [...] 14:26 EST Reading Location ID and State: [address] [place] [address] , Service support , CC: JENNIFER Rajput; Dr. Christopher Reese MD Technical Research Scientist: Signed Normal [facility] Absolute lymphocyte countOrd ered By: Dr. Reese on 12-16-2022 Lymphocytes Auto (Unsp spec) [#/Vol] 1.68 10*3/uL 0.83-4.51 [facility] Basophil percentageOrdered B y: Dr. Reese on 12-16-2022 Basophils/100 WBC (Bld) 0.5 % 0-1 [facility] Bilirubin [Mass/Vol] 0.30 mg/dL 0.20-1.[address] [facility] Comment on above: For patients on eltr ombopag therapy, use of Dimension [place] TBIL is not recommended. Chloride [Moles/Vol] 108 mmol/L 98-[address] [facility] Cholesterol [Mass/Vol] 175 mg/dL <200 [facility] Comment on above: <200 mg/dL Desirable 200-240 mg/dL Borderline >240 mg/dL High Risk Eosinophils/100 WBC (Bld) 2.2 % 0-5 [facility] Glucose [Mass/Vol] 113 mg/dL 74-106 [facility] Comment on above: Fasting Glucose resu lt from 100 to 125 mg/dL suggests IMPAIRED HOMEOSTASIS per A.D.A. criteria. Neutrophils (Bld) [#/Vol] 3.7 10*3/uL 2.0-7.7 [facility] Neutrophils/100 WBC (Bld) 60.6 % 47-70 [facility] Potassium [Moles/Vol] 5.0 mmol/L 3.5-5.1 [facility] Protein [Mass/Vol] 6.9 g/dL 6.4-8.2 [facility] Sodium [Moles/Vol] 140 mmol/L 136-145 [facility] Triglyceride [Mass/Vol] 72 mg/dL <199 [facility] Comment on above: The drugs N-Acetylcy steine and Metamizole may falsely depress this assay.Serum Triglycerides Reference Interval Normal <150 mg/dL Borderline high 150 - 199 mg/dL High 200 - 499 mg/dL Very High > or = 500 mg/dL WBC (Bld) [#/Vol] 6.0 10*3/uL 4.4-11.0 [facility] Blood erythrocytes count (nu mber/volume)Ordered By: Dr. Reese on 12-16-2022 RBC (Bld) [#/Vol] 4.81 10*6/uL 4.6-6.2 [facility] Blood hemoglobin measurement (mass/volume)Ordered By: Dr. Reese on 12-16-2022 Hemoglobin (Bld) [Mass/Vol] 15.0 g/dL 13.0-16.5 [facility] Blood lymphocytes/100 leukoc ytesOrdered By: Dr. Reese on 12-16-2022 Lymphocytes/100 WBC (Bld) 28.0 % 19-41 [facility] Blood monocytes/100 leukocyt esOrdered By: Dr. Reese on 12-16-2022 Monocytes/100 WBC (Bld) 8.5 % 0-10 [facility] Blood platelet mean volumeOr dered By: Dr. Reese on 12-16-2022 Platelet mean volume (Bld) [Entitic vol] 10.9 fL 6.2-12.0 [facility] Determination of erythrocyte mean corpuscular volume (MCV)Ordered By: Dr. Reese on 12-16-2022 MCV (RBC) [Entitic vol] 92.5 fL 80-94 [facility] Hematocrit Auto (Bld) [Volum e fraction]Ordered By: Dr. Reese on 12-16-2022 Hematocrit (Bld) [Volume fraction] 44.5 % 40-54 [facility] - Chemistry and C hemistry - challengeOrdered By: Dr. Reese on 12-16-2022 ALP [Catalytic activity/Vol] 72 U/L 45-117 [facility] ALT [Catalytic activity/Vol] 36 U/L 16-61 [facility] CO2 [Moles/Vol] 28.0 mmol/L 21.0-32.0 [facility] Globulin (S) [Mass/Vol] 3.2 g/dL 2.2-4.2 [facility] Urea nitrogen/Creatinine [Mass ratio] 17.4 mg/mg 10-20 [facility] - Hematology and Cell countsOrdered By: Dr. Reese on 12-16-2022 Erythrocyte distribution width (RBC) [Entitic vol] 42.8 fL 35.1-43.9 [facility] Erythrocyte distribution width (RBC) [Ratio] 12.5 % 11.6-14.6 [facility] Immature granulocytes/100 WBC (Bld) 0.200 % 0.0-0.9 [facility] Comment on above: IG% - Immature Granu locytes (promyelocytes, myelocytes and metamyelocytes) > 1% indicates that a LEFT SHIFT is Present. MCH (RBC) [Entitic mass] 31.2 pg 27.0-32.0 [facility] Nucleated RBC/100 WBC (Bld) [Ratio] 0 % 0-5 [facility] MCHC Auto (RBC) [Mass/Vol]Or dered By: Dr. Reese on 12-16-2022 MCHC (RBC) [Mass/Vol] 33.7 g/dL 32-36 [facility] No Panel InformationOrdered By: Dr. Reese on 12-16-2022 Estimated GFR (MDRD) Amer 86 mL/min >60 [facility] Comment on above: GFR Calc Estimated GFR (MDRD) Non-Af Amer 71 mL/min >60 [facility] Comment on above: Non- GFR Calc Prostate Specific Antigen Screen 1.55 ng/mL 0.00-4.00 [facility] Comment on above: This test was perfor med using the TPSA assay method for thePowerspan chemistry system. Values obtained with differentassay methods cannot be used interchangably.When changing PSA assays in the course of monitoring apatient, additional sequential testing should be carriedout to confirm baseline values. Platelets bldOrdered By: Dr. Reese on 12-16-2022 Platelets (Bld) [#/Vol] 236 10*3/uL 150-450 [facility] Serum or plasma albumin heidy urement (mass/volume)Ordered By: Dr. Reese on 12-16-2022 Albumin [Mass/Vol] 3.7 g/dL 3.2-5.0 [facility] Serum or plasma albumin/glob ulin mass ratioOrdered By: Dr. Reese on 12-16-2022 Albumin/Globulin [Mass ratio] 1.2 {ratio} 0.9-2.4 [facility] Serum or plasma calcium heidy urement (mass/volume)Ordered By: Dr. Reese on 12-16-2022 Calcium [Mass/Vol] 9.1 mg/dL 8.5-10.1 [facility] Serum or plasma cholesterol in HDL measurement (mass/volume)Ordered By: Dr. Reese on 12-16-2022 Cholesterol in HDL [Mass/Vol] 37 mg/dL >40 [facility] Comment on above: The drugs N-Acetylcy steine and Metamizole may falsely depress this assay. Reference Range HDL <40 mg/dL Low HDL Cholesterol HDL >or= 60 mg/dL High HDL Cholesterol Serum or plasma cholesterol in VLDL measurement (mass/volume)Ordered By: Dr. Reese on 12-16-2022 Cholesterol in VLDL [Mass/Vol] 14 mg/dL 5-40 [facility] Serum or plasma creatinine m easurement (mass/volume)Ordered By: Dr. Reese on 12-16-2022 Creatinine [Mass/Vol] 1.09 mg/dL 0.70-1.30 [facility] Comment on above: The validity of the calculated GFR & GFRAA in patients over 70 years has not been determined. Clinical correlation is essential. Serum or plasma low density lipoprotein (LDL) cholesterol measurement (mass/volume)Ordered By: Dr. Reese on 12-16-2022 Cholesterol in LDL [Mass/Vol] 124 mg/dL 0-130 [facility] Serum or plasma urea nitroge n measurement (mass/volume)Ordered By: Dr. Reese on 12-16-2022 Urea nitrogen [Mass/Vol] 19 mg/dL 7-18 [facility] Thin prep Papanicolaou smear with manual screeningOrdered By: Dr. Reese on 12-16-2022 Thin prep Papanicolaou smear with manual screening 17 U/L 15-37 [facility] Thin prep Papanicolaou smear with manual screening 4 5-15 [facility] Encounters Encounter Date Encounter Type Care Provider Facility Start: 06-26-2025 ambulatory Christopher Reese Faci lity:[facility] Start: 06-16-2025 Encounter for preprocedural cardiovascular examination Marcin Russell Tatyana [facility] Start: 03-30-2025 End: 03-30-[address] Christopher Reese MD Work Phone: -Laboratory Specimen Start: 03-30-2025 End: 03-30-[address] Christopher Reese MD -Laboratory Specimen Work Phone: Start: 03-30-2025 End: 03-30-2025 ambulatory Christopher Reese Facility:[facility] Start: 08-15-2024 End: 08-15-2024 ambulatory Amelia Rajput NP Facility:[facility] Start: 08-07-2023 End: 08-07-2023 ambulatory [facility] Work Phone: Start: 08-07-2023 End: 08-07-2023 Patient encounter procedure [facility]-Cat [facility], [facility] Work Phone: Start: 12-16-2022 End: 12-16-2022 ambulatory [facility] Work Phone: Start: 12-16-2022 End: 12-16-2022 Patient encounter procedure [facility]-Laboratory Start: 06-19-2022 Non-patient / Non-visit Dr. Karson Reese Work Phone: [facility] Start: 06-19-2022 End: 06-19-[address] Radames Reese Work Phone: [facility] Work Phone: Start: 06-19-2022 End: 06-19-[address] Radames Reese Work Phone: [facility]-Cardiovascu lar Services Procedures Date Procedure Procedure Detail Performing Clinician Start: 03-31-2025 Urine microalbumin/creatinine ratio measurement Dr. Christopher Reese MD Work Phone: Start: 08-07-2023 CT of chest Payers Date Payer Category Payer Self-pay [id number] 2024 Medicare [id number] [id number] Unknown [id number] 2013 [id number] Unknown [id number] Unknown [id number] Social History Date Type Detail Facility Start: 11-12-2016 End: 11-12-2016 Tobacco smoking status NHIS Unknown if ever smoked [facility] Start: 1955 Sex Assigned At Male W [facility] Start: 11-12-2016 Tobacco smoking stat us NHIS Current some day smoker [facility] Evaluation note Note Date & Type Note Facility Evaluation note No assessment information availa ble [facility] Work Phone: Reason for referral (narrative) Note Date & Type Note Facility Reason for referral (narrative) No reason for referral information available [facility] Work Phone: Chief Complaint and Reason for Visit Chief Complaint ARRHYTHMIA Chief Complaint EORDER Chief Complaint TOBACCO USE Advance Directives No Advanced Directives Records Found Advance Directive Response Recorded Date/ Time Living Will Yes November 12, 2016 12:31pm Power of Financial Engineer Yes November 12 12:31pm Advance Directive Response Recorded Date/ Time Living Will Yes November 12, 2016 1:31pm Power of Financial Engineer Yes November 12 1:31pm Summary Purpose Family [...] Care Provider, Attending Provider, Referring Provider Active Team Status: Active Member Role/Relationship Status Dates Dr. Christopher Reese MD Primary Care Provider Acti ve Team Status: Inactive Member Role/Relationship Status Dates Dr. Christopher Reese MD Primary Care Provider Acti ve Start: March 30, 2025 End: March 30, 2025 Dr. Christopher Reese MD Attending Provider Active Start: March 30, 2025 End: March 30, 2025 Dr. Christopher Reese MD Referring Provider Active Start: March 30, 2025 End: March 30, 2025 (unrecognized sect ion and content) No Status Records Found INFORMATION SOURCE (unrecogn ized section and content) DATE CREATED AUTHOR 06/18/2025 [facility] FOR RECORDS PERTAINING TO PATIENTS WHO [...] BE BASED ON THE PRIMARY CLINICAL RECORDS. [facility]. provides no warranty or guarantee of the accuracy or completeness of information in this document.
[2025-08-10 08:40] LABS: Hematocrit 41.2 % (40-54); Hemoglobin 13.6 g/dL (13.0-16.5); Immature Granulocytes Count 0.020 X10^3/uL (0.0-0.0); Mean Corp Hgb Conc 33.0 g/dL (32-36); Mean Corpuscular Volume 95.2 fL (80-94); Mean Platelet Vol. 11.3 fl (6.2-12.0); NRBC Flagged by Analyzer 0 % (0-5); Platelet Count 238 K/mm3 (150-450); RBC Distribution Width CV 12.0 % (11.6-14.6); RBC Distribution Width SD 42.0 fl (35.1-43.9); Red Blood Count 4.33 M/mm3 (4.6-6.2); White Blood Count 7.4 K/mm3 (4.4-11.0)
[2025-08-10 09:06] LABS: Albumin, Serum 4.1 g/dL (3.4-4.8); Anion Gap 9 (7-18); BUN 33 mg/dL (4-19); BUN/Creat Ratio 35.1 RATIO (10-20); Calcium,Total 8.9 mg/dL (7.6-11.0); Carbon Dioxide 26.5 mmol/L (20.0-29.0); Chloride 104 mmol/L (96-106); Glucose 135 mg/dL (70-99); Potassium 4.0 mmol/L (3.5-5.1)
== END | disposition home or self-care (01) ==
PROVIDERS: PCP Family Medicine; Referring Provider Specialist; Visit Provider Specialist
DX: Z01.812 Encounter for preprocedural laboratory examination (principal); M25.569 Pain in unspecified knee
CPT/HCPCS: 36415; 73700; 80048; 82040; 85025